=== PATIENT | male | born 1955 | race Caucasian/White ===

== ENCOUNTER 2019-08-27 13:03 | Emergency (ER) | payer OTHER ==
[2019-08-27 13:12] VITALS: BP 152/87; PULSE 74; TEMP 98.2; BMI 23.3
[2019-08-27] MEDS ORDERED: KETOROLAC TROMETHAMINE 60 MG/2 ML VIAL ONE (13:50)
[2019-08-27] MEDS ORDERED: KETOROLAC TROMETHAMINE 60 MG/2 ML VIAL IM ONE (13:51)
--- NOTE | 2019-08-27 13:59 | PDOC ---
History of Present Illness - General Chief Complaint: Back Pain Stated Complaint: UPPER/ LOWER BACK PAIN Time Seen by Provider: 08/27/19 13:38 History Source: Patient - History of Present Illness Occurred: reports: other Severity: reports: moderate Pain Location: reports: back Past History - Past Medical History Allergies/Adverse Reactions: Allergies Allergy/AdvReac Type Severity Reaction Status Date / Time No Known Allergies Allergy Verified 12/21/13 19:44 Home Medications: Ambulatory Orders Pantoprazole Sodium 20 mg PO DAILY 11/17/12 Zolpidem Tartrate [Ambien] 10 mg PO HS 11/17/12 Lipase/Protease/Amylase [Mary Sloan 24,000 Units Capsule] 1 each PO DAILY Oxycodone HCl/Acetaminophen [Percocet 10-325 mg Tablet -] 1 - 2 tab PO Q6H PRN 12/21/13 Ranitidine [Zantac] 150 mg PO BID 12/21/13 Oxycodone HCl/Acetaminophen [Percocet 5-325 mg Tablet -] 1 - 2 tab PO Q6H PRN # 20 tablet 12/22/13 Oxycodone HCl/Acetaminophen [Percocet 5-325 mg Tablet] 1 tab PO Q4H #20 tablet MDD 4 doses 08/27/19 Anemia: No Asthma: No Cancer: No Cardiac Disorders: No CVA: No COPD: No CHF: No Dementia: No Diabetes: No GI Disorders: Yes (acid reflux, pancreatitis) Disorders: No HTN: No Hypercholesterolemia: Yes Liver Disease: No Seizures: No Thyroid Disease: No Other medical history: chronic lower back pain - Immunization History Immunization Up to Date: No - Psycho Social/Smoking Cessation Hx Smoking Status: No Smoking History: Never smoked Have you smoked in the past 12 months: No Number of Cigarettes Smoked Daily: 0 Information on smoking cessation initiated: No Hx Alcohol Use: No Drug/Substance Use Hx: No Substance Use Type: Alcohol Review of Systems - Review of Systems Constitutional: No: Chills, Fever ABD/GI: No: Nausea, Vomiting, Abdominal cramping : No: Dysuria, Flank Pain, Hematuria Musculoskeletal: Yes: Back Pain Neurological: No: Numbness, Tingling, Weakness *Physical Exam - Vital Signs Last Vital Signs Temp Pulse Resp BP Pulse Ox 98.2 F 74 18 152/87 96 08/27/19 13:09 08/27/19 13:09 08/27/19 13:09 08/27/19 13:09 08/27/19 13:09 - Physical Exam General Appearance: Yes: Appropriately Dressed. No: Apparent Distress HEENT: positive: Normal Voice Neck: positive: Supple Respiratory/Chest: negative: Respiratory Distress Gastrointestinal/Abdominal: positive: Soft. negative: Tender Musculoskeletal: negative: CVA Tenderness, Vertebral Tenderness Extremity: positive: Normal Inspection Integumentary: positive: Dry, Warm Neurologic: positive: Fully Oriented, Alert, Normal Mood/Affect, Motor Strength /5 Medical Decision Making - Medical Decision Making 08/27/19 14:01 63 yo M, HTN, chronic lower back pain with DJD and herniated disc to LS spine on MRI in 2016, currently only follows up with pain management and states he has an appointment with a new pain doctor in 3 days but here for worsening pain after lifting heavy laundry several days ago. Pain located to lower back and radiates to left buttocks and leg which is not new for patient. No acute sensory changes, lower extremity weakness, saddle anesthesia, or bowel or bladder incontinence. Currently does not have any pain medication at home and usually takes Percocet. S/p spinal injection in past which did not help per pt. S/p PT in the past per patient. No back surgeries to date see exam Acute on chronic LBP Known DJD/herniated disc on MRI Has new appt w/ pain doc in 3 days Ran out of pain meds No red flags today Dc w/ pain control until can see pain specialist Discharge - Discharge Information Problems reviewed: Yes Clinical Impression/Diagnosis: Chronic low back pain Qualifiers: Back pain laterality: left Sciatica presence: with sciatica Sciatica laterality : sciatica of left side Qualified Code(s): M54.42 - Lumbago with sciatica, left side; G89.29 - Other chronic pain - Additional Discharge Information Prescriptions: Oxycodone HCl/Acetaminophen [Percocet 5-325 mg Tablet] 1 tab PO Q4H #20 tablet MDD 4 doses - Follow up/Referral Referrals: Ness Lake [Primary Care Provider] - Cachorro Shafer MD [Staff Physician] - - Patient Discharge Instructions Patient Printed Discharge Instructions: Managing Chronic Low Back Pain Additional Instructions: Take medications as directed and follow-up with your pain doctor as already scheduled in 3 days Please follow-up with Dr. Shafer of orthopedic spine - Post Discharge Activity
== END 2019-08-27 14:04 | disposition home or self-care (01) ==
LOC: JERFT 13:03
PROC: 3E0233Z Introduction of Anti-inflammatory into Muscle, Percutaneous Approach (ICD-10-PCS; principal; 2019-08-27)
DX: M54.42 Lumbago with sciatica, left side (principal); G89.29 Other chronic pain; I10 Essential (primary) hypertension
CPT/HCPCS: 96372; 99281-25

== ENCOUNTER 2019-09-07 11:05 | Emergency (ER) | payer OTHER ==
[2019-09-07 11:20] VITALS: BP 127/77; PULSE 60; TEMP 98.5; BMI 23.3
[2019-09-07] MEDS ORDERED: KETOROLAC TROMETHAMINE 30 MG/1 ML VIAL IM ONE (11:37)
[2019-09-07] MEDS ORDERED: KETOROLAC TROMETHAMINE 30 MG/1 ML VIAL ONE (11:42)
--- NOTE | 2019-09-07 11:46 | PDOC ---
History of Present Illness - General Chief Complaint: Injury Stated Complaint: FELL Time Seen by Provider: 09/07/19 11:22 History Source: Patient Exam Limitations: No Limitations - History of Present Illness Initial Comments: 09/07/19 11:41 63 yo M w/ a h/o herniated disc, chronic pain, comes in c/o R toe pain, redness and bruising after a piece of plywood fell on his foot yesterday. No other complaints today, no other injuries, no breaks in skin, no sensory deficits, no ankle injury. Pt says that he sees pain management for his chronic pain, recently changed doctors but forgot to bring his medical records so he has to reschedule his appointment. Past History - Past Medical History Allergies/Adverse Reactions: Allergies Allergy/AdvReac Type Severity Reaction Status Date / Time No Known Allergies Allergy Verified 09/07/19 11:17 Home Medications: Ambulatory Orders Pantoprazole Sodium 20 mg PO DAILY 11/17/12 Zolpidem Tartrate [Ambien] 10 mg PO HS 11/17/12 Lipase/Protease/Amylase [Mary Sloan 24,000 Units Capsule] 1 each PO DAILY Oxycodone HCl/Acetaminophen [Percocet 10-325 mg Tablet -] 1 - 2 tab PO Q6H PRN 12/21/13 Ranitidine [Zantac] 150 mg PO BID 12/21/13 Oxycodone HCl/Acetaminophen [Percocet 5-325 mg Tablet -] 1 - 2 tab PO Q6H PRN # 20 tablet 12/22/13 Oxycodone HCl/Acetaminophen [Percocet 5-325 mg Tablet] 1 tab PO Q4H #20 tablet MDD 4 doses 08/27/19 Acetaminophen W/ Codeine #3 [Tylenol # 3 -] 1 tab PO Q6H #5 tablet MDD 4 Anemia: No Asthma: No Cancer: No Cardiac Disorders: No CVA: No COPD: No CHF: No Dementia: No Diabetes: No GI Disorders: Yes (acid reflux, pancreatitis) Disorders: No HTN: No Hypercholesterolemia: Yes Liver Disease: No Seizures: No Thyroid Disease: No - Immunization History Immunization Up to Date: No - Psycho Social/Smoking Cessation Hx Smoking Status: No Smoking History: Never smoked Have you smoked in the past 12 months: No Number of Cigarettes Smoked Daily: 0 Hx Alcohol Use: No Drug/Substance Use Hx: No Substance Use Type: Alcohol Review of Systems - Review of Systems Able to Perform ROS?: Yes Constitutional: No: Chills, Fever, Malaise, Night Sweats HEENTM: No: Eye Pain, Recent change in vision, Throat Pain Respiratory: No: Cough, Shortness of Breath Cardiac (ROS): No: Chest Pain, Palpitations, Chest Tightness ABD/GI: No: Diarrhea, Nausea, Vomiting, Abdominal cramping : No: Dysuria, Hematuria Integumentary: No: Rash Neurological: No: Headache, Numbness, Dizziness Psychiatric: No: Change in Appetite Endocrine: No: Unexplained Weight Loss *Physical Exam - Vital Signs Last Vital Signs Temp Pulse Resp BP Pulse Ox 98.5 F 60 17 127/77 96 09/07/19 11:17 09/07/19 11:17 09/07/19 11:17 09/07/19 11:17 09/07/19 11:17 - Physical Exam General Appearance: Yes: Nourished. No: Apparent Distress HEENT: positive: ZAINAB, Normal ENT Inspection, Normal Voice. negative: Pale Conjunctivae, Scleral Icterus (R), Scleral Icterus (L) Neck: positive: Supple. negative: Decreased range of motion, Tender midline Respiratory/Chest: negative: Respiratory Distress, Accessory Muscle Use Cardiovascular: positive: Regular Rate Musculoskeletal: positive: Normal Inspection. negative: Decreased Range of Motion Extremity: positive: Normal Capillary Refill, Normal Inspection, Normal Range of Motion, Other (R foot with bruising, tenderness and swelling to the first MTPJ but FROM, 5/5 strength. No subungual hematoma seen. Full sensory function, good DP pulses bilaterally. R ankle with FROM, 5/5 strength.). negative: Tender , Pedal Edema Integumentary: positive: Normal Color, Dry. negative: Jaundice, Rash Neurologic: positive: Fully Oriented, Alert, Normal Mood/Affect ED Treatment Course - RADIOLOGY Radiology Studies Ordered: Category Date Time Status FOOT-RIGHT [RAD] Stat Radiology 09/07/19 11:35 Ordered Medical Decision Making - Medical Decision Making 09/07/19 11:52 63 yo M w/ foot injury R/O fracture. WIll give toradol for pain, do an xray and reassess 09/07/19 12:40 Xray reviewed. (+)non displaced fracture of the distal phalanx of the first toe. Pt placed in alanna tape. Will discharge with ortho follow up Tylenol #3, 5 pills. Pt needs to call his pain management doctor. He may take T3 with motrin Return for worsening/concerning symptoms Discharge - Discharge Information Problems reviewed: Yes Clinical Impression/Diagnosis: Toe fracture, right Qualifiers: Encounter type: initial encounter Toe: great toe Fracture type: closed Phalanx : distal Fracture alignment: nondisplaced Qualified Code(s): S92.424A - Nondisplaced fracture of distal phalanx of right great toe, initial encounter for closed fracture Condition: Stable Disposition: HOME - Additional Discharge Information Prescription Drug Monitoring Program (I-STOP) results: I-STOP reviewed and no issues identified (#[id number]) - Follow up/Referral Referrals: Ness Lake [Primary Care Provider] - Sammy Sultana DO [Staff Physician] - - Patient Discharge Instructions Patient Printed Discharge Instructions: DI for Toe Fracture Additional Instructions: Please call the orthopedic doctor as instructed and follow up with pain management for pain control. - Post Discharge Activity
== END 2019-09-07 13:01 | disposition home or self-care (01) ==
LOC: JERFT 11:05
PROC: 3E0233Z Introduction of Anti-inflammatory into Muscle, Percutaneous Approach (ICD-10-PCS; principal; 2019-09-07)
DX: S92.424A Nondisplaced fracture of distal phalanx of right great toe, initial encounter for closed fracture (principal); W22.8XXA Striking against or struck by other objects, initial encounter; Y93.89 Activity, other specified; Y92.89 Other specified places as the place of occurrence of the external cause; Y99.8 Other external cause status; K21.9 Gastro-esophageal reflux disease without esophagitis; K86.9 Disease of pancreas, unspecified; E78.00 Pure hypercholesterolemia, unspecified; G89.29 Other chronic pain
CPT/HCPCS: 73630-TC-RT-FY; 99281-25

== ENCOUNTER 2020-02-11 18:35 | Emergency (ER) | payer OTHER ==
[2020-02-11 19:29] VITALS: BP 137/75; PULSE 70; TEMP 97.3; BMI 23.6
--- NOTE | 2020-02-11 19:34 | PDOC ---
Rapid Medical Evaluation Chief Complaint: Chest Pain Medical Evaluation: Allergies Allergy/AdvReac Type Severity Reaction Status Date / Time No Known Allergies Allergy Verified 10/28/19 10:05 Vital Signs Temp Pulse Resp BP Pulse Ox 97.3 F L 70 20 137/75 99 02/11/20 19:26 02/11/20 19:26 02/11/20 19:26 02/11/20 19:26 02/11/20 19:26 02/11/20 19:29 I performed a brief in-person evaluation of this patient. Patient is a 64 year old male h/o HTN, c/o generalized upper chest pain, worse with deep breathing, (+) cough. NO know COVID exposure. Has been in the house. Since today has been taking tylenol last dose was 3:30 pm without relief. Pertinent physical exam findings: Gen: well appearing CVS: S1S2 reg rate, rhythm LUNG: Clear b /l Abd: soft, nontender I have ordered the following: cxr ekg Patient to proceed to tent for further evaluation.
--- NOTE | 2020-02-11 20:08 | PDOC ---
History of Present Illness - General Chief Complaint: Chest Pain Stated Complaint: CHEST PAINS Time Seen by Provider: 02/11/20 19:43 History Source: Patient Exam Limitations: No Limitations - History of Present Illness Initial Comments: 02/11/20 19:59 64 y/o presents to the ED with c/o of midsternal and back pressure x 3 days. Pt denies cough as initially mentioned in triage. Pt denies SOB, fever, recent covid exposure. Pt states has been home for the past 8 days with who has no complaints. No smoking, Pt with hx of HTN and dyslipidemia Is this a multiple visit Asthma Patient?: No Timing/Duration: constant Severity: mild, moderate Associated Symptoms: reports: chest pain Past History - Travel Traveled outside of the country in the last 30 days: No Close contact w/someone who was outside of country & ill: No - Past Medical History Allergies/Adverse Reactions: Allergies Allergy/AdvReac Type Severity Reaction Status Date / Time No Known Allergies Allergy Verified 10/28/19 10:05 Home Medications: Ambulatory Orders Pantoprazole Sodium 20 mg PO DAILY 11/17/12 Zolpidem Tartrate [Ambien] 10 mg PO HS 11/17/12 Lipase/Protease/Amylase [Creon Dr 24,000 Units Capsule] 1 each PO DAILY 12/21/13 Oxycodone HCl/Acetaminophen [Percocet 10-325 mg Tablet -] 1 - 2 tab PO Q6H PRN 12/21/13 Ranitidine [Zantac] 150 mg PO BID 12/21/13 Oxycodone HCl/Acetaminophen [Percocet 5-325 mg Tablet -] 1 - 2 tab PO Q6H PRN #20 tablet 12/22/13 Oxycodone HCl/Acetaminophen [Percocet 5-325 mg Tablet] 1 tab PO Q4H #20 tablet MDD 4 doses 08/27/19 Acetaminophen W/ Codeine #3 [Tylenol # 3 -] 1 tab PO Q6H #5 tablet MDD 4 09/07/19 Anemia: No Asthma: No Cancer: No Cardiac Disorders: No CVA: No COPD: No CHF: No Dementia: No Diabetes: No GI Disorders: Yes (acid reflux, pancreatitis) Disorders: No HTN: No Hypercholesterolemia: Yes Liver Disease: No Seizures: No Thyroid Disease: No - Immunization History Immunization Up to Date: No - Psycho Social/Smoking Cessation Hx Smoking Status: No Smoking History: Never smoked Have you smoked in the past 12 months: No Number of Cigarettes Smoked Daily: 0 Hx Alcohol Use: Yes Drug/Substance Use Hx: No Substance Use Type: Alcohol Patient Lives Alone: No Lives with/in: spouse/SO Review of Systems - Review of Systems Able to Perform ROS?: No Is the patient limited Yoruba proficient: No Constitutional: No: Symptoms Reported HEENTM: No: Symptoms Reported Respiratory: No: Symptoms reported Cardiac (ROS): Yes: Chest Pain ABD/GI: No: Symptoms Reported : No: Symptoms Reported Musculoskeletal: No: Symptoms Reported Integumentary: No: Symptoms Reported Neurological: No: Symptoms reported Endocrine: No: Symptoms Reported Hematologic/Lymphatic: No: Symptoms Reported *Physical Exam - Vital Signs Last Vital Signs Temp Pulse Resp BP Pulse Ox 97.3 F L 70 20 137/75 99 02/11/20 19:26 02/11/20 19:26 02/11/20 19:26 02/11/20 19:26 02/11/20 19:26 - Physical Exam General Appearance: Yes: Nourished, Appropriately Dressed. No: Apparent Distress HEENT: negative: Pale Conjunctivae, Scleral Icterus (R), Scleral Icterus (L) Respiratory/Chest: positive: Lungs Clear, Normal Breath Sounds, Accessory Muscle Use. negative: Respiratory Distress Cardiovascular: positive: Regular Rhythm, Regular Rate. negative: Murmur Gastrointestinal/Abdominal: positive: Soft. negative: Tenderness Extremity: positive: Normal Inspection Integumentary: positive: Normal Color, Warm, Moist Neurologic: positive: Motor Strength 5/5 (ambulatory) Heart Score/ECG Review - ECG Intrepretation Rhythm: Regular Rhythm (rate 70. prolonged qtc, changed from prev ekg) ED Treatment Course - LABORATORY CBC & Chemistry Diagram: 02/11/20 20:37 02/11/20 20:37 Medical Decision Making - Medical Decision Making 02/11/20 20:11 CC: CP x 3 days, hx htn and dyslipidemia Exam: vss, no reprod CP, ekg with changes concerned for ACS Plan: cardiac w/u, cxr 02/11/20 20:13 cxr with no acute process Discharge - Discharge Information Problems reviewed: Yes Clinical Impression/Diagnosis: Chest pain - Follow up/Referral Referrals: Ness Lake [Primary Care Provider] - - Patient Discharge Instructions - Post Discharge Activity
[2020-02-11 21:15] LABS: INR 0.97 (0.83-1.09); PROTHROMBIN TIME (PATIENT) 11.5 SEC (9.7-13.0)
[2020-02-11 21:17] LABS: ACTIVATED PTT 30.2 SECONDS (25.2-36.5)
[2020-02-11 22:00] LABS: BASO % 1.1 % (0-2.0); EOS % 2.1 % (0-4.5); HEMATOCRIT 40.7 % (35.4-49); HEMOGLOBIN 14.1 GM/dL (11.7-16.9); LYMPH % 20.2 % (8-40); MCH 31.3 pg (25.7-33.7); MCHC 34.7 g/dl (32.0-35.9); MEAN CELL VOLUME 90.1 fl (80-96); MEAN PLT VOLUME 9.8 fl (7.5-11.1); MONO % 7.6 % (3.8-10.2); PLATELET COUNT 159 K/MM3 (134-434); RBC 4.52 M/mm3 (4.00-5.60); RDW 13.4 % (11.9-15.9)
[2020-02-11 22:26] LABS: ALBUMIN 4.1 g/dl (3.4-5.0); ALK PHOS 64 U/L (45-117); ANION GAP 9 MMOL/L (8-16); BILIRUBIN,TOTAL 0.4 mg/dL (0.2-1); BLOOD UREA NITROGEN 18.4 mg/dL (7-18); CALCIUM 8.7 mg/dL (8.5-10.1); CHLORIDE 108 mmol/L (98-107); CO2 25 mmol/L (21-32); CREATININE 1.1 mg/dL (0.55-1.3); GLUCOSE,RANDOM 91 mg/dL (74-106); LIPASE 130 U/L (73-393); POTASSIUM 4.2 mmol/L (3.5-5.1); SGOT/AST 17 U/L (15-37); SGPT/ALT 20 U/L (13-61); SODIUM 142 mmol/L (136-145); TOT PROT 7.8 g/dl (6.4-8.2)
--- NOTE | 2020-02-11 22:37 | PDOC ---
History of Present Illness - General Chief Complaint: Chest Pain Stated Complaint: CHEST PAINS Time Seen by Provider: 02/11/20 19:43 - History of Present Illness Initial Comments: 02/11/20 22:37 64 yo M PMH HTN, HLD, hepatitis C s/p treatment by Dr. Lake at [facility], presenting with R sided chest pain. Reports that this pain has been present for the past three days, radiating down his R arm and into his R back, exacerbated by deep breaths, associated with SOB but without N/V or diaphoresis. Here today because pain went to 10/10, sharp. Has since subsided down to 8/10. Further complains of 8/10 frontal headache like a band. No one in the house is ill, and the patient has been self-quarantining. Extensive family history of cardiac disease; his father and all five brothers have had heart attacks, usually in their early 50s. Past History - Past Medical History Allergies/Adverse Reactions: Allergies Allergy/AdvReac Type Severity Reaction Status Date / Time No Known Allergies Allergy Verified 10/28/19 10:05 Home Medications: Ambulatory Orders Pantoprazole Sodium 20 mg PO DAILY 11/17/12 Zolpidem Tartrate [Ambien] 10 mg PO HS 11/17/12 Lipase/Protease/Amylase [Mary Sloan 24,000 Units Capsule] 1 each PO DAILY 12/21/13 Oxycodone HCl/Acetaminophen [Percocet 10-325 mg Tablet -] 1 - 2 tab PO Q6H PRN 12/21/13 Ranitidine [Zantac] 150 mg PO BID 12/21/13 Oxycodone HCl/Acetaminophen [Percocet 5-325 mg Tablet -] 1 - 2 tab PO Q6H PRN #20 tablet 12/22/13 Oxycodone HCl/Acetaminophen [Percocet 5-325 mg Tablet] 1 tab PO Q4H #20 tablet MDD 4 doses 08/27/19 Acetaminophen W/ Codeine #3 [Tylenol # 3 -] 1 tab PO Q6H #5 tablet MDD 4 09/07/19 Anemia: No Asthma: No Cancer: No Cardiac Disorders: No CVA: No COPD: No CHF: No Dementia: No Diabetes: No GI Disorders: Yes (acid reflux, pancreatitis) Disorders: No HTN: No Hypercholesterolemia: Yes Liver Disease: No Seizures: No Thyroid Disease: No - Immunization History Immunization Up to Date: No - Psycho Social/Smoking Cessation Hx Smoking Status: No Smoking History: Never smoked Have you smoked in the past 12 months: No Number of Cigarettes Smoked Daily: 0 Hx Alcohol Use: Yes Drug/Substance Use Hx: No Substance Use Type: Alcohol Patient Lives Alone: No Lives with/in: spouse/SO Review of Systems - Review of Systems Is the patient limited Bahraini proficient: No *Physical Exam - Vital Signs Last Vital Signs Temp Pulse Resp BP Pulse Ox 97.3 F L 70 20 137/75 99 02/11/20 19:26 02/11/20 19:26 02/11/20 19:26 02/11/20 19:26 02/11/20 19:26 Heart Score/ECG Review - History History: Slightly suspicious - Electrocardiogram EKG: Non specific repolarization disturbance - Age Age: 45-65 - Risk Factors Risk Factors Heart Score: Yes Hx Hypercholesterolemia, Yes Hx Hypertension, Yes Positive family hx of cardiac disease Based on the list above the patient has:: >/=3 risk factors or Hx atherosclerotic disease - Troponin Troponin: </= normal limit - Score Heart Score - Total: 4 ED Treatment Course - LABORATORY CBC & Chemistry Diagram: 02/11/20 20:37 02/11/20 20:37 - ADDITIONAL ORDERS Additional order review: Laboratory Results 02/11/20 02/11/20 20:37 20:35 PT with INR 11.50 INR 0.97 PTT (Actin FS) 30.2 Sodium 142 Potassium 4.2 Chloride 108 H Carbon Dioxide 25 Anion Gap 9 BUN 18.4 H Creatinine 1.1 Est GFR (CKD-EPI)AfAm 81.79 Est GFR (CKD-EPI)NonAf 70.57 Random Glucose 91 Calcium 8.7 Total Bilirubin 0.4 AST 17 ALT 20 Alkaline Phosphatase 64 Creatine Kinase 93 Troponin I < 0.02 Total Protein 7.8 Albumin 4.1 Lipase 130 02/11/20 20:37 RBC 4.52 MCV 90.1 MCHC 34.7 RDW 13.4 MPV 9.8 Neutrophils % 69.0 Lymphocytes % 20.2 D Monocytes % 7.6 Eosinophils % 2.1 D Basophils % 1.1 D Medical Decision Making - Medical Decision Making 02/11/20 22:35 R/o ACS. Low concern for PE, Wells is 0. - labs unconcerning - CXR without acute issues EKG poor baseline quality, normal sinus at 70 bpm, flattened T waves in I and V4 with T wave inversions in V5 and V6, ND 168, QRS 76, QTc 496. T wave inversions in lateral leads not present in EKG from 10/28/2019. Will admit patient to tele obs. 02/11/20 23:13 Patient states that he does not want to stay due to risk of coronavirus and would like to leave against medical advice. He has capacity to make this decision. Will sign out AMA. Discharge - Discharge Information Problems reviewed: Yes Clinical Impression/Diagnosis: Chest pain Qualifiers: Chest pain type: unspecified Qualified Code(s): R07.9 - Chest pain, unspecified Condition: Stable Disposition: AGAINST MEDICAL ADVICE - Follow up/Referral Referrals: Ness Lake [Primary Care Provider] - - Patient Discharge Instructions Patient Printed Discharge Instructions: DI for Atypical Chest Pain Additional Instructions: You were seen with chest pain. Your labs and chest X-ray did not show any concerning findings, but your EKG did have some concerning findings. However, you were unwilling to stay and signed out against medical advice. Follow up with your primary care doctor within one week. Return to the ER if you develop new or worsening symptoms. - Post Discharge Activity
[2020-02-11] MEDS ORDERED: ACETAMINOPHEN 500 MG TABLET (FP) PO ONE (22:48)
[2020-02-11] MEDS ORDERED: METOCLOPRAMIDE HCL 10 MG TABLET (FP) PO ONE (22:48)
--- NOTE | 2020-02-11 23:15 | PDOC ---
Documentation entered by Caden Segal SCRIBE, acting as scribe for Mica Contreras MD. Mica Contreras MD: This documentation has been prepared by the Luzma ruggiero Nirvannie, SCRIBE, under my direction and personally reviewed by me in its entirety. I confirm that the documentation accurately reflects all work, treatment, procedures, and medical decision making performed by me. Attending Attestation - Resident Resident Name: Rico Rowan - ED Attending Attestation I have performed the following: I have examined & evaluated the patient, The case was reviewed & discussed with the resident, I agree w/resident's findings & plan, Exceptions are as noted - HPI HPI: 02/11/20 22:58 64 yo male developed chest pain tat radiated to his right arm head ncat neck supple lungs cta b/l cvs [id number] abd nontender skin warm and dry neuro axox3,no focal neuro deficits - Physicial Exam PE: 02/11/20 23:30 wnwd 64 yo male head ncat neck supple lungs cta b/l cvs [id number] abd nontender skin warm and dry neuro axox3,no focal neuro deficits - Medical Decision Making 02/11/20 23:15 pt was going to be admitted to telemetry but he decided he felt better and refused to stay for a second troponin or be admitted for further evaluation he signed out AMA Discharge - Discharge Information Problems reviewed: Yes Clinical Impression/Diagnosis: Chest pain Condition: Stable Disposition: AGAINST MEDICAL ADVICE - Follow up/Referral Referrals: Ness Lake [Primary Care Provider] - - Patient Discharge Instructions Patient Printed Discharge Instructions: DI for Atypical Chest Pain Additional Instructions: You were seen with chest pain. Your labs and chest X-ray did not show any conc erning findings, but your EKG did have some concerning findings. However, you were unwilling to stay and signed out against medical advice. Follow up with your primary care doctor within one week. Return to the ER if you develop new or worsening symptoms. - Post Discharge Activity
--- NOTE | 2020-02-12 14:07 | EKG ---
Test Reason : Blood Pressure : / mmHG Vent. Rate : 070 BPM Atrial Rate : 070 BPM P-R Int : 168 ms QRS Dur : 076 ms QT Int : 460 ms P-R-T Axes : 056 -28 066 degrees QTc Int : 496 ms NORMAL SINUS RHYTHM NONSPECIFIC T WAVE ABNORMALITY PROLONGED QT ABNORMAL ECG WHEN COMPARED WITH ECG OF 28-OCT-2019 11:35, T WAVE VARIATION QT HAS LENGTHENED Confirmed by FERNANDO YANG, LAWRENCE ([id number]) on 02/12/2020 2:07:49 PM Referred By: SHARON Confirmed By:LAWRENCE KING MD
== END 2020-02-11 23:30 | disposition left against medical advice (07) ==
LOC: JER 18:35
DX: R07.9 Chest pain, unspecified (principal)
CPT/HCPCS: 36415; 71045-TC-FY; 80053; 82550; 83690; 84484; 85025; 85610; 85730; 93005; 93010; 99285-25

== ENCOUNTER 2021-01-21 09:30 | Inpatient (IN) | payer OTHER ==
[2021-01-21] MEDS ORDERED: SODIUM CHLORIDE 1,000 ML IV SCH (10:00)
[2021-01-21 10:30] LABS: BASO % 0.4 % (0-2.0); EOS % 0.2 % (0-4.5); HEMATOCRIT 43.6 % (35.4-49); HEMOGLOBIN 14.9 GM/dL (11.7-16.9); LYMPH % 17.6 % (8-40); MCH 30.3 pg (25.7-33.7); MCHC 34.1 g/dl (32.0-35.9); MEAN CELL VOLUME 88.8 fl (80-96); MONO % 9.3 % (3.8-10.2); NEUT % 72.5 % (42.8-82.8); PLATELET COUNT 183 K/MM3 (134-434); RBC 4.92 M/mm3 (4.00-5.60); RDW 14.4 % (11.9-15.9)
[2021-01-21] MEDS ORDERED: METOCLOPRAMIDE HCL INJECTION 10 MG/2 ML VIAL IVPUSH ONE (10:37)
[2021-01-21 10:47] LABS: ACTIVATED PTT 23.2 SECONDS (25.2-36.5); INR 0.85 (0.83-1.09); PROTHROMBIN TIME (PATIENT) 10.5 SEC (9.7-13.0)
[2021-01-21 11:00] LABS: CHLORIDE 108 mmol/L (98-107); POTASSIUM 4.3 mmol/L (3.5-5.1); SODIUM 138 mmol/L (136-145)
[2021-01-21 11:03] LABS: ALBUMIN 4.2 g/dl (3.4-5.0); ANION GAP 5 MMOL/L (8-16); BLOOD UREA NITROGEN 21.2 mg/dL (7-18); CO2 25 mmol/L (21-32)
[2021-01-21 11:04] LABS: GLUCOSE,RANDOM 93 mg/dL (74-106)
[2021-01-21 11:06] LABS: CHOLESTEROL 279 mg/dL (50-200); SGOT/AST 14 U/L (15-37); SGPT/ALT 27 U/L (13-61)
[2021-01-21 11:07] LABS: CREATININE 0.9 mg/dL (0.55-1.3); LDL CHOLESTEROL (ONLY SJRH) 185 mg/dL (5-100); TRIGLYCERIDES 102 mg/dL (0-150)
[2021-01-21 11:08] LABS: BILIRUBIN,TOTAL 0.4 mg/dL (0.2-1); TOT PROT 8.1 g/dl (6.4-8.2)
[2021-01-21 11:09] LABS: ALK PHOS 66 U/L (45-117); HDL CHOLESTEROL 80 mg/dL (40-60)
[2021-01-21 11:10] LABS: CALCIUM 9.1 mg/dL (8.5-10.1)
[2021-01-21] MEDS ORDERED: METOCLOPRAMIDE HCL INJECTION 10 MG/2 ML VIAL ONE (11:47)
[2021-01-21] MEDS ORDERED: ASPIRIN 81 MG CHEWABLE TABLETS PO ONE (12:16)
[2021-01-21] MEDS ORDERED: ATORVASTATIN CA 80 MG TABLET (FP) PO ONE (12:17)
[2021-01-21] MEDS ORDERED: ATORVASTATIN CA 80 MG TABLET (FP) ONE (12:24)
[2021-01-21] MEDS ORDERED: ASPIRIN 81 MG CHEWABLE TABLETS ONE (12:24)
[2021-01-21 14:11] LABS: URINE APPEARANCE CLEAR; URINE BILIRUBIN NEGATIVE (NEGATIVE); URINE COLOR YELLOW; URINE GLUCOSE (UA) NEGATIVE (NEGATIVE); URINE KETONE NEGATIVE (NEGATIVE); URINE LEUK ESTERASE NEGATIVE (NEGATIVE); URINE NITRITE NEGATIVE (NEGATIVE); URINE PROTEIN NEGATIVE (NEGATIVE); URINE UROBILINOGEN 0.2 mg/dL (0.2-1.0)
[2021-01-21] MEDS ORDERED: ATENOLOL 25 MG TABLET (FP) ONE (15:29)
[2021-01-21] MEDS: D5-1/2NS+20 MEQ KCL - 20 MEQ/1,000 ML INFUS.BAG IV SCH ×2 (15:32→19:00)
[2021-01-21] MEDS: ATENOLOL 25 MG TABLET (FP) PO SCH (15:33)
[2021-01-21 19:41] LABS: CHOLESTEROL 265 mg/dL (50-200); LDL CHOLESTEROL (ONLY SJRH) 173 mg/dL (5-100); TRIGLYCERIDES 152 mg/dL (0-150)
[2021-01-21 19:43] LABS: HDL CHOLESTEROL 71 mg/dL (40-60)
[2021-01-21] MEDS ORDERED: PNEUMOC 13-VAL CONJ-DIP CRM/PF 0.5 ML DISP.SYRIN IM ONE (20:00)
[2021-01-21] MEDS: ATORVASTATIN CA 80 MG TABLET (FP) PO SCH (21:06)
[2021-01-21] MEDS: QUEtiapine FUMARATE 25 MG TABLET PO SCH (21:09)
[2021-01-21] MEDS: HEPARIN NA (PORCINE) 5,000 UNITS/ML 1ML VIAL SQ SCH (21:10)
[2021-01-21 21:43] VITALS: BMI 21.8
[2021-01-22] MEDS: oxyCODONE HCL 5 MG TABLET PO PRN ×2 (01:50→19:56)
[2021-01-22] MEDS: ACETAMINOPHEN 325 MG TABLET (FP) PO PRN ×2 (01:55→19:57)
[2021-01-22 08:16] LABS: BASO % 0.5 % (0-2.0); EOS % 0.4 % (0-4.5); HEMATOCRIT 41.4 % (35.4-49); HEMOGLOBIN 14.6 GM/dL (11.7-16.9); LYMPH % 22.1 % (8-40); MCH 31.1 pg (25.7-33.7); MCHC 35.3 g/dl (32.0-35.9); MEAN CELL VOLUME 88.1 fl (80-96); MEAN PLT VOLUME 9.9 fl (7.5-11.1); MONO % 8.9 % (3.8-10.2); NEUT % 68.1 % (42.8-82.8); PLATELET COUNT 178 K/MM3 (134-434); RDW 14.1 % (11.9-15.9); WHITE BLOOD COUNT 6.5 K/mm3 (4.0-10.0)
[2021-01-22 08:48] LABS: CHLORIDE 108 mmol/L (98-107); POTASSIUM 4.3 mmol/L (3.5-5.1); SODIUM 136 mmol/L (136-145)
[2021-01-22 08:53] LABS: ALBUMIN 3.8 g/dl (3.4-5.0); ANION GAP 5 MMOL/L (8-16); BLOOD UREA NITROGEN 15.2 mg/dL (7-18); CALCIUM 8.7 mg/dL (8.5-10.1); CO2 23 mmol/L (21-32); GLUCOSE,RANDOM 103 mg/dL (74-106)
[2021-01-22 08:56] LABS: PHOSPHOROUS 3.6 mg/dL (2.5-4.9); SGOT/AST 11 U/L (15-37); SGPT/ALT 23 U/L (13-61)
[2021-01-22 08:57] LABS: BILIRUBIN,TOTAL 0.8 mg/dL (0.2-1)
[2021-01-22 08:58] LABS: TOT PROT 7.5 g/dl (6.4-8.2)
[2021-01-22 08:59] LABS: ALK PHOS 61 U/L (45-117)
[2021-01-22] MEDS: HEPARIN NA (PORCINE) 5,000 UNITS/ML 1ML VIAL SQ SCH ×2 (10:14→21:23)
[2021-01-22] MEDS: PANTOPRAZOLE 20 MG TABLET PO SCH (10:14)
[2021-01-22] MEDS: ATENOLOL 25 MG TABLET (FP) PO SCH (10:14)
[2021-01-22] MEDS: ASPIRIN COATED 81 MG TABLET.EC PO SCH (10:14)
[2021-01-22] MEDS: D5-1/2NS+20 MEQ KCL - 20 MEQ/1,000 ML INFUS.BAG IV SCH (15:10)
[2021-01-22] MEDS: ATORVASTATIN CA 80 MG TABLET (FP) PO SCH (21:23)
[2021-01-22] MEDS: QUEtiapine FUMARATE 25 MG TABLET PO SCH (21:23)
[2021-01-23] MEDS: oxyCODONE HCL 5 MG TABLET PO PRN (06:18)
[2021-01-23] MEDS: ACETAMINOPHEN 325 MG TABLET (FP) PO PRN (06:19)
[2021-01-23] MEDS: HEPARIN NA (PORCINE) 5,000 UNITS/ML 1ML VIAL SQ SCH (10:39)
[2021-01-23] MEDS: PANTOPRAZOLE 20 MG TABLET PO SCH (10:39)
[2021-01-23] MEDS: ATENOLOL 25 MG TABLET (FP) PO SCH (10:39)
[2021-01-23] MEDS: ASPIRIN COATED 81 MG TABLET.EC PO SCH (10:40)
[2021-01-23 11:13] VITALS: BP 118/75; PULSE 56; TEMP 98.2
== END 2021-01-23 12:00 | disposition home health service (06) | DRG 65 ==
LOC: JER 09:30 → JERBED 13:05 → OBSVTOIN 14:32 → J4S 16:07
PROVIDERS: ADMIT Family Medicine; ATTEND Family Medicine
DX: I63.9 Cerebral infarction, unspecified (principal); I69.351 Hemiplegia and hemiparesis following cerebral infarction affecting right dominant side; I10 Essential (primary) hypertension; E78.5 Hyperlipidemia, unspecified; B18.2 Chronic viral hepatitis C; K21.9 Gastro-esophageal reflux disease without esophagitis; R29.708 NIHSS score 8; R47.81 Slurred speech; R26.9 Unspecified abnormalities of gait and mobility
CPT/HCPCS: 36415; 70450-TC; 70496-TC; 70498-TC; 70551-TC; 71045-TC-FY; 80053; 80061; 81003; 82550; 83036; 83721; 84100; 84443; 84484; 85025; 85610; 85730; 86140; 86850; 86900; 86901; 87804; 90670; 93005; 93010; 93306-TC; 93880-TC; 97116-GP; 97161-GP; 99291; C9803; G0378; J1644; Q9967; U0003

== ENCOUNTER 2021-03-02 09:08 | Emergency (ER) | payer OTHER ==
[2021-03-02 09:18] VITALS: TEMP 97.8; BMI 23.1
[2021-03-02] MEDS ORDERED: ACETAMINOPHEN 1000 MG/100 ML VIAL (NON FORMULARY) IVPB ONE (10:51)
[2021-03-02] MEDS ORDERED: ACETAMINOPHEN INJECTION 100 ML IVPB ONE (10:55)
[2021-03-02 11:07] LABS: BASO % 1.2 % (0-2.0); EOS % 3.6 % (0-4.5); HEMATOCRIT 39.6 % (35.4-49); HEMOGLOBIN 13.9 GM/dL (11.7-16.9); LYMPH % 27.4 % (8-40); MEAN CELL VOLUME 88.7 fl (80-96); MEAN PLT VOLUME 9.8 fl (7.5-11.1); MONO % 7.3 % (3.8-10.2); NEUT % 60.5 % (42.8-82.8); PLATELET COUNT 161 K/MM3 (134-434); RBC 4.47 M/mm3 (4.00-5.60); RDW 13.6 % (11.9-15.9); WHITE BLOOD COUNT 4.9 K/mm3 (4.0-10.0)
[2021-03-02 11:17] LABS: INR 0.97 (0.83-1.09)
[2021-03-02 11:19] LABS: ACTIVATED PTT 19.7 SECONDS (25.2-36.5)
[2021-03-02 11:21] LABS: CHLORIDE 109 mmol/L (98-107); SODIUM 141 mmol/L (136-145)
[2021-03-02 11:23] LABS: CALCIUM 9.3 mg/dL (8.5-10.1)
[2021-03-02 11:24] LABS: ANION GAP 2 MMOL/L (8-16); BLOOD UREA NITROGEN 14.2 mg/dL (7-18); CO2 29 mmol/L (21-32); GLUCOSE,RANDOM 85 mg/dL (74-106)
[2021-03-02 11:27] LABS: CREATININE 0.8 mg/dL (0.55-1.3); SGOT/AST 18 U/L (15-37); SGPT/ALT 23 U/L (13-61)
[2021-03-02 11:28] LABS: BILIRUBIN,TOTAL 0.8 mg/dL (0.2-1); TOT PROT 7.4 g/dl (6.4-8.2)
[2021-03-02 11:29] LABS: ALK PHOS 62 U/L (45-117)
[2021-03-02 13:42] LABS: PH,URINE 5.5 (5.0-8.0); URINE APPEARANCE CLEAR; URINE BILIRUBIN NEGATIVE (NEGATIVE); URINE COLOR YELLOW; URINE GLUCOSE (UA) NEGATIVE (NEGATIVE); URINE KETONE NEGATIVE (NEGATIVE); URINE LEUK ESTERASE NEGATIVE (NEGATIVE); URINE NITRITE NEGATIVE (NEGATIVE); URINE PROTEIN NEGATIVE (NEGATIVE); URINE UROBILINOGEN 0.2 mg/dL (0.2-1.0)
[2021-03-02] MEDS ORDERED: GABAPENTIN 300 MG CAPSULE PO ONE (14:36)
[2021-03-02 15:02] VITALS: BP 138/69; PULSE 64
[2021-03-02] MEDS ORDERED: GABAPENTIN 100 MG CAPSULE ONE (15:05)
== END 2021-03-02 15:12 | disposition home or self-care (01) ==
LOC: JER 09:08
PROC: 3E0333Z Introduction of Anti-inflammatory into Peripheral Vein, Percutaneous Approach (ICD-10-PCS; principal; 2021-03-02)
DX: R20.2 Paresthesia of skin (principal); G89.0 Central pain syndrome
CPT/HCPCS: 36415; 70450-TC; 70551-TC; 71046-TC-FY; 80053; 81003; 82550; 84484; 85025; 85610; 85730; 87086; 93005; 93010; 99285-25; C9803; J0131; U0003; U0005

== ENCOUNTER 2021-04-23 12:46 | Emergency (ER) | payer OTHER ==
[2021-04-23 12:58] VITALS: TEMP 98.3; BMI 21.9
[2021-04-23 15:24] VITALS: BP 140/72; PULSE 72
== END 2021-04-23 15:25 | disposition home or self-care (01) ==
LOC: JER 12:46
DX: M54.5 Low back pain (principal)
CPT/HCPCS: 99281-25

== ENCOUNTER 2021-06-10 14:53 | Emergency (ER) | payer OTHER ==
[2021-06-10 15:00] VITALS: TEMP 98; BMI 23.0
[2021-06-10] MEDS ORDERED: ACETAMINOPHEN 325 MG TABLET (FP) PO ONE (17:14)
[2021-06-10] MEDS ORDERED: KETAMINE HCL 500 MG/10 ML VIAL IM ONE ×2 (17:20→17:24)
[2021-06-10] MEDS ORDERED: ACETAMINOPHEN 325 MG TABLET (FP) ONE (17:29)
[2021-06-10] MEDS ORDERED: KETAMINE HCL 200 MG/20 ML VIAL ONE (17:35)
[2021-06-10 19:13] VITALS: BP 150/62; PULSE 78
== END 2021-06-10 19:00 | disposition home or self-care (01) ==
LOC: JER 14:53
DX: G89.29 Other chronic pain (principal)
CPT/HCPCS: 99283-25

== ENCOUNTER 2021-07-24 22:56 | Inpatient (IN) | payer OTHER ==
[2021-07-24 23:00] VITALS: BMI 25.0
[2021-07-24 23:22] LABS: BASO % 1.1 % (0-2.0); EOS % 2.7 % (0-4.5); HEMATOCRIT 39.3 % (35.4-49); HEMOGLOBIN 13.6 GM/dL (11.7-16.9); LYMPH % 22.4 % (8-40); MCH 30.6 pg (25.7-33.7); MCHC 34.7 g/dl (32.0-35.9); MEAN CELL VOLUME 88.3 fl (80-96); MEAN PLT VOLUME 9.3 fl (7.5-11.1); MONO % 9.1 % (3.8-10.2); NEUT % 64.7 % (42.8-82.8); PLATELET COUNT 166 10^3/uL (134-434); RBC 4.45 M/mm3 (4.00-5.60); RDW 13.5 % (11.9-15.9); VENOUS BASE EXCESS -2.2 mmol/L (-2-2); VENOUS O2 SATURATION 93.9 % (70-80); VENOUS PCO2 34.9 mmHg (38-52); VENOUS PH 7.412 (7.310-7.410); WHITE BLOOD COUNT 6.8 K/mm3 (4.0-10.0)
[2021-07-24] MEDS ORDERED: LORazepam 2 MG/ML SDV VIAL IVPUSH ONE (23:29)
[2021-07-24] MEDS ORDERED: LORazepam 2 MG/ML SDV VIAL ONE (23:29)
[2021-07-24 23:30] LABS: INR 0.91 (0.83-1.09)
[2021-07-24 23:33] LABS: ACTIVATED PTT 22.6 SECONDS (25.2-36.5)
[2021-07-24 23:45] LABS: CHLORIDE 111 mmol/L (98-107); SODIUM 142 mmol/L (136-145)
[2021-07-24 23:47] LABS: CALCIUM 8.7 mg/dL (8.5-10.1)
[2021-07-24 23:48] LABS: ALBUMIN 3.7 g/dl (3.4-5.0); ANION GAP 5 MMOL/L (8-16); BLOOD UREA NITROGEN 20.3 mg/dL (7-18); CO2 26 mmol/L (21-32); GLUCOSE,RANDOM 126 mg/dL (74-106); MAGNESIUM 2.5 mg/dL (1.8-2.4)
[2021-07-24 23:51] LABS: SGOT/AST 16 U/L (15-37); SGPT/ALT 20 U/L (13-61)
[2021-07-24 23:52] LABS: BILIRUBIN,TOTAL 0.3 mg/dL (0.2-1); TOT PROT 7.3 g/dl (6.4-8.2)
[2021-07-24 23:53] LABS: ALK PHOS 58 U/L (45-117)
[2021-07-24 23:56] LABS: N-TERMINAL BNP 53.5 pg/ml (5-125)
[2021-07-25 00:08] LABS: COCAINE, UR NEGATIVE (NEGATIVE); METHADONE, UR NEGATIVE (NEGATIVE); URINE BARBITURATES NEGATIVE (NEGATIVE)
[2021-07-25 00:09] LABS: OPIATES, URI NEGATIVE (NEGATIVE); PHENCYCLIDINE,URINE NEGATIVE (NEGATIVE)
[2021-07-25 00:13] LABS: URINE AMPHETAMINES NEGATIVE (NEGATIVE); URINE BENZODIAZEPINES POSITIVE (NEGATIVE)
[2021-07-25] MEDS ORDERED: SODIUM CHLORIDE 1,000 ML IV STA (00:20)
[2021-07-25] MEDS ORDERED: LORazepam 2 MG/ML SDV VIAL ONE (00:26)
[2021-07-25] MEDS ORDERED: LORazepam 2 MG/ML SDV VIAL IVPUSH ONE (00:27)
[2021-07-25 00:31] LABS: PH,URINE 6.5 (5.0-8.0); URINE APPEARANCE CLEAR; URINE BILIRUBIN NEGATIVE (NEGATIVE); URINE COLOR YELLOW; URINE GLUCOSE (UA) NEGATIVE (NEGATIVE); URINE KETONE NEGATIVE (NEGATIVE); URINE LEUK ESTERASE NEGATIVE (NEGATIVE); URINE NITRITE NEGATIVE (NEGATIVE); URINE PROTEIN NEGATIVE (NEGATIVE); URINE UROBILINOGEN 0.2 mg/dL (0.2-1.0)
[2021-07-25] MEDS ORDERED: DEXTROSE 5%-NORMAL SALINE 1,000 ML IV SCH (02:15)
[2021-07-25] MEDS ORDERED: ALBUTEROL SO4 HFA INHALER IH PRN (02:52)
[2021-07-25] MEDS ORDERED: CYCLOBENZAPRINE HCL 5 MG TABLET PO PRN (03:00)
[2021-07-25] MEDS ORDERED: TAMSULOSIN HCL 0.4 MG CAP PO ONE (03:00)
[2021-07-25] MEDS ORDERED: LORazepam 2 MG/ML SDV VIAL IVPB PRN (05:43)
[2021-07-25] MEDS ORDERED: ACETAMINOPHEN 1000 MG/100 ML VIAL (NON FORMULARY) IVPB PRN (06:04)
[2021-07-25] MEDS ORDERED: ENOXAPARIN NA (PORCINE) 40 MG/0.4 ML DISP.SYRIN SQ ONE (07:47)
[2021-07-25] MEDS ORDERED: FLUTICASONE/SALMETEROL 100 MCG/50 MCG DISKUS IH SCH (10:00)
[2021-07-25] MEDS: ASPIRIN COATED 81 MG TABLET.EC PO SCH (10:29)
[2021-07-25] MEDS: OXYBUTYNIN CHLORIDE 5 MG TABLET PO SCH ×2 (10:29→22:37)
[2021-07-25] MEDS: ATENOLOL 25 MG TABLET (FP) PO SCH (10:30)
[2021-07-25] MEDS: PANTOPRAZOLE 40 MG TABLET PO SCH (10:30)
[2021-07-25] MEDS: ENOXAPARIN NA (PORCINE) 40 MG/0.4 ML DISP.SYRIN SQ SCH (10:30)
[2021-07-25] MEDS ORDERED: METOPROLOL TARTRATE 5 MG/5 ML VIAL IVPUSH PRN (13:45)
[2021-07-25] MEDS ORDERED: PT OWN MED DRAWER 7, Y5N ONE (21:42)
[2021-07-25] MEDS: ATORVASTATIN CA 40 MG TABLET (FP) PO SCH (22:38)
[2021-07-26 08:56] LABS: EOS % 2.5 % (0-4.5); HEMATOCRIT 42.2 % (35.4-49); HEMOGLOBIN 14.7 GM/dL (11.7-16.9); MCH 30.8 pg (25.7-33.7); MCHC 34.8 g/dl (32.0-35.9); MEAN CELL VOLUME 88.4 fl (80-96); MEAN PLT VOLUME 9.7 fl (7.5-11.1); MONO % 7.4 % (3.8-10.2); NEUT % 66.1 % (42.8-82.8); PLATELET COUNT 168 10^3/uL (134-434); RBC 4.77 M/mm3 (4.00-5.60); RDW 13.4 % (11.9-15.9); WHITE BLOOD COUNT 7.5 K/mm3 (4.0-10.0)
[2021-07-26] MEDS ORDERED: PT OWN MED DRAWER 7, Y5N ONE ×2 (09:22→21:35)
[2021-07-26 09:44] LABS: ALBUMIN 3.7 g/dl (3.4-5.0); BLOOD UREA NITROGEN 12.4 mg/dL (7-18); CALCIUM 8.5 mg/dL (8.5-10.1)
[2021-07-26 09:47] LABS: BILIRUBIN,TOTAL 1.2 mg/dL (0.2-1); TOT PROT 7.2 g/dl (6.4-8.2)
[2021-07-26 09:48] LABS: CREATININE 0.9 mg/dL (0.55-1.3)
[2021-07-26] MEDS: ENOXAPARIN NA (PORCINE) 40 MG/0.4 ML DISP.SYRIN SQ SCH (09:55)
[2021-07-26] MEDS: OXYBUTYNIN CHLORIDE 5 MG TABLET PO SCH ×2 (09:55→21:48)
[2021-07-26] MEDS: PANTOPRAZOLE 40 MG TABLET PO SCH (09:55)
[2021-07-26] MEDS: ASPIRIN COATED 81 MG TABLET.EC PO SCH (09:55)
[2021-07-26] MEDS: ATENOLOL 25 MG TABLET (FP) PO SCH (09:55)
[2021-07-26] MEDS ORDERED: MELATONIN 5 MG TABLETS PO ONE (20:29)
[2021-07-26] MEDS: ATORVASTATIN CA 40 MG TABLET (FP) PO SCH (21:48)
[2021-07-27] MEDS ORDERED: MELATONIN 5 MG TABLETS PO ONE ×2 (03:18→20:15)
[2021-07-27 08:56] LABS: BASO % 0.9 % (0-2.0); EOS % 3.8 % (0-4.5); HEMATOCRIT 41.3 % (35.4-49); HEMOGLOBIN 14.5 GM/dL (11.7-16.9); LYMPH % 25.1 % (8-40); MCH 31.3 pg (25.7-33.7); MCHC 35.1 g/dl (32.0-35.9); MEAN CELL VOLUME 89.2 fl (80-96); MONO % 8.1 % (3.8-10.2); NEUT % 62.1 % (42.8-82.8); PLATELET COUNT 174 10^3/uL (134-434); RBC 4.63 M/mm3 (4.00-5.60); RDW 13.6 % (11.9-15.9); WHITE BLOOD COUNT 7.3 K/mm3 (4.0-10.0)
[2021-07-27] MEDS ORDERED: PT OWN MED DRAWER 7, Y5N ONE ×2 (09:11→22:23)
[2021-07-27 09:25] LABS: CALCIUM 8.8 mg/dL (8.5-10.1)
[2021-07-27 09:26] LABS: ALBUMIN 3.6 g/dl (3.4-5.0); BLOOD UREA NITROGEN 18.1 mg/dL (7-18)
[2021-07-27 09:31] LABS: BILIRUBIN,TOTAL 0.7 mg/dL (0.2-1); TOT PROT 7.1 g/dl (6.4-8.2)
[2021-07-27] MEDS: ASPIRIN COATED 81 MG TABLET.EC PO SCH (09:43)
[2021-07-27] MEDS: ATENOLOL 25 MG TABLET (FP) PO SCH (09:43)
[2021-07-27] MEDS: PANTOPRAZOLE 40 MG TABLET PO SCH (09:43)
[2021-07-27] MEDS: OXYBUTYNIN CHLORIDE 5 MG TABLET PO SCH ×2 (09:43→22:47)
[2021-07-27] MEDS: ENOXAPARIN NA (PORCINE) 40 MG/0.4 ML DISP.SYRIN SQ SCH (09:43)
[2021-07-27] MEDS: oxyCODONE HCL 5 MG TABLET PO PRN ×2 (15:29→22:46)
[2021-07-27] MEDS: ATORVASTATIN CA 40 MG TABLET (FP) PO SCH (22:47)
[2021-07-28 05:45] VITALS: BP 122/74; PULSE 47; TEMP 97.8
[2021-07-28] MEDS ORDERED: PT OWN MED DRAWER 7, Y5N ONE (09:03)
[2021-07-28] MEDS: OXYBUTYNIN CHLORIDE 5 MG TABLET PO SCH (09:04)
[2021-07-28] MEDS: ASPIRIN COATED 81 MG TABLET.EC PO SCH (09:07)
[2021-07-28] MEDS: PANTOPRAZOLE 40 MG TABLET PO SCH (09:08)
[2021-07-28] MEDS: ENOXAPARIN NA (PORCINE) 40 MG/0.4 ML DISP.SYRIN SQ SCH (09:08)
[2021-07-28] MEDS ORDERED: ATENOLOL 25 MG TABLET (FP) PO SCH (10:00)
== END 2021-07-28 11:41 | disposition home or self-care (01) | DRG 917 ==
LOC: JER 22:56 → JERBED 07-25 02:01 → J4W 07-25 16:42
PROVIDERS: ADMIT Internal Medicine; ATTEND Family Medicine
DX: T40.601A Poisoning by unspecified narcotics, accidental (unintentional), initial encounter (principal); G92 Toxic encephalopathy; I69.351 Hemiplegia and hemiparesis following cerebral infarction affecting right dominant side; I10 Essential (primary) hypertension; E78.5 Hyperlipidemia, unspecified; F32.9 Major depressive disorder, single episode, unspecified; K21.9 Gastro-esophageal reflux disease without esophagitis; F10.10 Alcohol abuse, uncomplicated; M54.9 Dorsalgia, unspecified; C61 Malignant neoplasm of prostate; Y92.009 Unspecified place in unspecified non-institutional (private) residence as the place of occurrence of the external cause
CPT/HCPCS: 36415; 70450-TC; 70551-TC; 71045-TC-FY; 72125-TC; 80048; 80053; 80171; 80307; 81003; 82140; 82550; 82803; 82962; 83605; 83735; 83880; 84443; 84484; 85025; 85610; 85730; 86850; 86900; 86901; 87040; 93005; 93010; 99285-25; C9803; U0003; U0005

== ENCOUNTER 2021-09-03 07:36 | Emergency (ER) | payer OTHER ==
[2021-09-03 08:06] VITALS: BP 161/66; PULSE 63; TEMP 98.4; BMI 25.1
[2021-09-03] MEDS ORDERED: METHOCARBAMOL 500 MG TABLET PO ONE (08:20)
[2021-09-03] MEDS ORDERED: ACETAMINOPHEN 1000 MG/100 ML VIAL IVPB ONE (08:20)
[2021-09-03 08:22] LABS: URINE APPEARANCE CLEAR; URINE BILIRUBIN NEGATIVE (NEGATIVE); URINE COLOR YELLOW; URINE GLUCOSE (UA) NEGATIVE (NEGATIVE); URINE KETONE NEGATIVE (NEGATIVE); URINE LEUK ESTERASE NEGATIVE (NEGATIVE); URINE NITRITE NEGATIVE (NEGATIVE); URINE PROTEIN NEGATIVE (NEGATIVE); URINE UROBILINOGEN 0.2 mg/dL (0.2-1.0)
[2021-09-03] MEDS ORDERED: METHOCARBAMOL 500 MG TABLET ONE (08:30)
[2021-09-03] MEDS ORDERED: ACETAMINOPHEN INJECTION 100 ML IVPB ONE (08:31)
== END 2021-09-03 10:40 | disposition home or self-care (01) ==
LOC: JER 07:36
PROC: 3E033GC Introduction of Other Therapeutic Substance into Peripheral Vein, Percutaneous Approach (ICD-10-PCS; principal; 2021-09-03)
DX: M79.10 Myalgia, unspecified site (principal)
CPT/HCPCS: 81003; 96374; 99284-25; J0131

== ENCOUNTER 2021-12-20 13:38 | Emergency (ER) | payer OTHER ==
[2021-12-20 13:50] VITALS: TEMP 97.4; BMI 21.7
[2021-12-20] MEDS ORDERED: morphine CARPU-JECT 4 MG/1 ML DISP.SYRIN IVPUSH ONE (15:02)
[2021-12-20] MEDS ORDERED: ACETAMINOPHEN 1000 MG/100 ML BAG IVPB ONE (15:02)
[2021-12-20] MEDS ORDERED: morphine SULFATE 4 MG/ML VIAL ONE (15:10)
[2021-12-20] MEDS ORDERED: ACETAMINOPHEN INJECTION 100 ML IVPB ONE (15:11)
[2021-12-20 15:43] LABS: BASO % 0.5 % (0-2.0); EOS % 2.9 % (0-4.5); HEMATOCRIT 39.7 % (35.4-49); HEMOGLOBIN 13.6 GM/dL (11.7-16.9); LYMPH % 18.5 % (8-40); MCH 30.1 pg (25.7-33.7); MCHC 34.3 g/dl (32.0-35.9); MEAN CELL VOLUME 87.8 fl (80-96); MEAN PLT VOLUME 9.7 fl (7.5-11.1); MONO % 6.1 % (3.8-10.2); PLATELET COUNT 153 10^3/uL (134-434); RBC 4.52 M/mm3 (4.00-5.60); RDW 13.3 % (11.9-15.9); WHITE BLOOD COUNT 5.7 K/mm3 (4.0-10.0)
[2021-12-20 15:57] LABS: CALCIUM 9.4 mg/dL (8.5-10.1)
[2021-12-20 15:58] LABS: ALBUMIN 4.4 g/dl (3.4-5.0)
[2021-12-20 16:00] LABS: CREATININE 1.1 mg/dL (0.55-1.3)
[2021-12-20 16:02] LABS: BILIRUBIN,TOTAL 0.6 mg/dL (0.2-1); INR 1.05 (0.83-1.09); PROTHROMBIN TIME (PATIENT) 12.1 SEC (9.7-13.0); TOT PROT 7.8 g/dl (6.4-8.2)
[2021-12-20 16:05] LABS: ACTIVATED PTT 26.7 SECONDS (25.2-36.5)
[2021-12-20 17:49] VITALS: BP 137/83; PULSE 60
== END 2021-12-20 18:19 | disposition home or self-care (01) ==
LOC: JER 13:38
PROC: 3E0333Z Introduction of Anti-inflammatory into Peripheral Vein, Percutaneous Approach (ICD-10-PCS; principal; 2021-12-20)
PROC: 3E033NZ Introduction of Analgesics, Hypnotics, Sedatives into Peripheral Vein, Percutaneous Approach (ICD-10-PCS; 2021-12-20)
DX: R07.89 Other chest pain (principal)
CPT/HCPCS: 36415; 71045-TC-FY; 80053; 82550; 84484; 85025; 85610; 85730; 93005; 93010; 96374; 96375; 99285-25; J0131

== ENCOUNTER 2022-01-05 11:00 | Emergency (ER) | payer OTHER ==
[2022-01-05 11:55] VITALS: TEMP 98.2; BMI 21.9
[2022-01-05] MEDS ORDERED: SODIUM CHLORIDE 0.9% 500 ML INFUS.BAG IV ONE (12:47)
[2022-01-05] MEDS ORDERED: ACETAMINOPHEN 1000 MG/100 ML BAG IVPB ONE (12:48)
[2022-01-05] MEDS ORDERED: morphine CARPU-JECT 2 MG/1 ML DISP.SYRIN IVPUSH ONE (12:48)
[2022-01-05] MEDS ORDERED: ACETAMINOPHEN INJECTION 100 ML IVPB ONE (12:53)
[2022-01-05 13:33] LABS: BASO % 0.3 % (0-2.0); HEMATOCRIT 45.2 % (35.4-49); HEMOGLOBIN 15.7 GM/dL (11.7-16.9); LYMPH % 16.9 % (8-40); MCH 29.9 pg (25.7-33.7); MCHC 34.6 g/dl (32.0-35.9); MEAN CELL VOLUME 86.4 fl (80-96); MEAN PLT VOLUME 8.9 fl (7.5-11.1); MONO % 10.3 % (3.8-10.2); NEUT % 72.5 % (42.8-82.8); PLATELET COUNT 241 10^3/uL (134-434); RBC 5.23 M/mm3 (4.00-5.60); RDW 12.8 % (11.9-15.9); WHITE BLOOD COUNT 7.9 K/mm3 (4.0-10.0)
[2022-01-05 13:59] LABS: CALCIUM 10.3 mg/dL (8.5-10.1)
[2022-01-05 14:00] LABS: ALBUMIN 4.7 g/dl (3.4-5.0)
[2022-01-05 14:02] LABS: CREATININE 1.1 mg/dL (0.55-1.3)
[2022-01-05 14:04] LABS: BILIRUBIN,TOTAL 0.7 mg/dL (0.2-1); TOT PROT 8.6 g/dl (6.4-8.2)
[2022-01-05] MEDS ORDERED: diazePAM 5 MG TABLET PO ONE (14:46)
[2022-01-05] MEDS ORDERED: diazePAM 5 MG TABLET ONE (14:47)
[2022-01-05] MEDS ORDERED: LIDOCAINE 5% TOPICAL PATCH TP ONE (16:41)
[2022-01-05] MEDS ORDERED: LIDOCAINE 5% TOPICAL PATCH ONE (16:48)
[2022-01-05 16:58] VITALS: BP 147/87; PULSE 87
[2022-01-05] MEDS ORDERED: LIDOCAINE PATCH REMOVAL MC SCH (22:00)
== END 2022-01-05 17:00 | disposition home or self-care (01) ==
LOC: JER 11:00
PROC: 3E0333Z Introduction of Anti-inflammatory into Peripheral Vein, Percutaneous Approach (ICD-10-PCS; principal; 2022-01-05)
PROC: 3E033NZ Introduction of Analgesics, Hypnotics, Sedatives into Peripheral Vein, Percutaneous Approach (ICD-10-PCS; 2022-01-05)
DX: R25.2 Cramp and spasm (principal)
CPT/HCPCS: 36415; 80053; 82550; 85025; 96374; 96375; 99284-25

== ENCOUNTER 2022-07-28 16:31 | Observation (INO) | payer OTHER ==
[2022-07-28 16:52] VITALS: BMI 22.5
[2022-07-28] MEDS ORDERED: SODIUM CHLORIDE 1,000 ML IV STA (17:42)
[2022-07-28] MEDS ORDERED: ACETAMINOPHEN 1000 MG/100 ML BAG IVPB ONE (17:42)
[2022-07-28] MEDS ORDERED: morphine CARPU-JECT 2 MG/1 ML DISP.SYRIN IVPUSH ONE ×2 (17:42→21:59)
[2022-07-28] MEDS ORDERED: ACETAMINOPHEN INJECTION 100 ML IVPB ONE (17:59)
[2022-07-28 18:44] LABS: BASO % 1.4 % (0-2.0); EOS % 7.3 % (0-4.5); HEMATOCRIT 40.7 % (35.4-49); HEMOGLOBIN 13.8 GM/dL (11.7-16.9); LYMPH % 24.7 % (8-40); MCH 30.1 pg (25.7-33.7); MCHC 33.9 g/dl (32.0-35.9); MEAN CELL VOLUME 88.8 fl (80-96); MEAN PLT VOLUME 9.7 fl (7.5-11.1); MONO % 6.8 % (3.8-10.2); NEUT % 59.8 % (42.8-82.8); PLATELET COUNT 194 10^3/uL (134-434); RBC 4.59 M/mm3 (4.00-5.60); RDW 13.9 % (11.9-15.9)
[2022-07-28 18:48] LABS: CHLORIDE 108 mmol/L (98-107); SODIUM 141 mmol/L (136-145)
[2022-07-28 18:49] LABS: CALCIUM 8.8 mg/dL (8.5-10.1)
[2022-07-28 18:50] LABS: ANION GAP 6 MMOL/L (8-16); BLOOD UREA NITROGEN 16.1 mg/dL (7-18); CO2 28 mmol/L (21-32); GLUCOSE,RANDOM 89 mg/dL (74-106)
[2022-07-28 18:53] LABS: SGOT/AST 32 U/L (15-37); SGPT/ALT 48 U/L (13-61)
[2022-07-28 18:55] LABS: BILIRUBIN,TOTAL 0.6 mg/dL (0.2-1); TOT PROT 7.9 g/dl (6.4-8.2)
[2022-07-28 18:56] LABS: ALK PHOS 81 U/L (45-117)
[2022-07-28] MEDS ORDERED: KETOROLAC TROMETHAMINE 30 MG/1 ML VIAL IVPUSH ONE (21:14)
[2022-07-29] MEDS ORDERED: ACETAMINOPHEN 1000 MG/100 ML BAG IVPB ONE (02:49)
[2022-07-29] MEDS ORDERED: hydrALAZINE HCL 20 MG/ML VIAL IVPUSH ONE (02:50)
[2022-07-29] MEDS ORDERED: hydrALAZINE HCL 20 MG/ML VIAL ONE (02:58)
[2022-07-29] MEDS ORDERED: ACETAMINOPHEN INJECTION 100 ML IVPB ONE (03:04)
[2022-07-29] MEDS ORDERED: ACETAMINOPHEN 1000 MG/100 ML BAG IVPB PRN ×2 (04:16→05:54)
[2022-07-29 06:07] LABS: URINE APPEARANCE CLEAR; URINE BILIRUBIN NEGATIVE (NEGATIVE); URINE COLOR YELLOW; URINE GLUCOSE (UA) NEGATIVE (NEGATIVE); URINE KETONE NEGATIVE (NEGATIVE); URINE LEUK ESTERASE NEGATIVE (NEGATIVE); URINE NITRITE NEGATIVE (NEGATIVE); URINE PROTEIN NEGATIVE (NEGATIVE); URINE UROBILINOGEN 0.2 mg/dL (0.2-1.0)
[2022-07-29] MEDS ORDERED: SODIUM CHLORIDE 1,000 ML IV SCH (06:15)
[2022-07-29 06:48] VITALS: TEMP 97.9
[2022-07-29 07:11] LABS: BASO % 1.8 % (0-2.0); EOS % 11.3 % (0-4.5); HEMATOCRIT 40.4 % (35.4-49); HEMOGLOBIN 13.6 GM/dL (11.7-16.9); LYMPH % 24.9 % (8-40); MCH 29.6 pg (25.7-33.7); MCHC 33.5 g/dl (32.0-35.9); MEAN CELL VOLUME 88.3 fl (80-96); MEAN PLT VOLUME 10.2 fl (7.5-11.1); MONO % 7.4 % (3.8-10.2); NEUT % 54.6 % (42.8-82.8); PLATELET COUNT 186 10^3/uL (134-434); RBC 4.58 M/mm3 (4.00-5.60); RDW 13.8 % (11.9-15.9); WHITE BLOOD COUNT 5.6 K/mm3 (4.0-10.0)
[2022-07-29 07:49] LABS: ALBUMIN 3.7 g/dl (3.4-5.0); BILIRUBIN,TOTAL 0.6 mg/dL (0.2-1); BLOOD UREA NITROGEN 14.1 mg/dL (7-18); CALCIUM 8.4 mg/dL (8.5-10.1); MAGNESIUM 2.4 mg/dL (1.8-2.4); TOT PROT 7.3 g/dl (6.4-8.2)
[2022-07-29] MEDS ORDERED: ENOXAPARIN NA (PORCINE) 40 MG/0.4 ML DISP.SYRIN SQ ONE (08:04)
[2022-07-29] MEDS ORDERED: ENOXAPARIN NA (PORCINE) 40 MG/0.4 ML DISP.SYRIN SQ SCH (10:00)
[2022-07-29 10:17] VITALS: RESP 18
[2022-07-29 14:12] VITALS: BP 140/95; PULSE 77
[2022-07-29] MEDS ORDERED: ATORVASTATIN CA 40 MG TABLET (FP) PO SCH (22:00)
== END 2022-07-29 16:20 | disposition home or self-care (01) ==
LOC: JER 16:31 → JERBED 21:59
PROVIDERS: ADMIT Internal Medicine; ATTEND Internal Medicine
PROC: 3E033NZ Introduction of Analgesics, Hypnotics, Sedatives into Peripheral Vein, Percutaneous Approach (ICD-10-PCS; principal; 2022-07-28)
PROC: 3E023GC Introduction of Other Therapeutic Substance into Muscle, Percutaneous Approach (ICD-10-PCS; 2022-07-28)
PROC: 3E033GC Introduction of Other Therapeutic Substance into Peripheral Vein, Percutaneous Approach (ICD-10-PCS; 2022-07-28)
PROC: 3E0337Z Introduction of Electrolytic and Water Balance Substance into Peripheral Vein, Percutaneous Approach (ICD-10-PCS; 2022-07-28)
DX: I49.1 Atrial premature depolarization (principal); R07.9 Chest pain, unspecified; E78.5 Hyperlipidemia, unspecified; Z85.46 Personal history of malignant neoplasm of prostate; M54.9 Dorsalgia, unspecified
CPT/HCPCS: 36415; 70450-TC; 71045-TC-FY; 80053; 81003; 82550; 83735; 84100; 84484; 85025; 87086; 93005; 93010; 96361; 96372; 96374; 96375; 96376; 99285-25; C9803-CS; G0378; U0003; U0005

== ENCOUNTER 2023-04-19 13:25 | Observation (INO) | payer OTHER ==
[2023-04-19] MEDS ORDERED: ACETAMINOPHEN 1000 MG/100 ML BAG IVPB ONE (14:28)
[2023-04-19] MEDS ORDERED: ACETAMINOPHEN INJECTION 100 ML IVPB ONE (14:32)
[2023-04-19 15:00] LABS: BASO % 2.3 % (0-2.0); EOS % 5.4 % (0-4.5); HEMATOCRIT 37.9 % (35.4-49); HEMOGLOBIN 12.9 GM/dL (11.7-16.9); LYMPH % 20.1 % (8-40); MCH 30.3 pg (25.7-33.7); MCHC 34.1 g/dl (32.0-35.9); MEAN PLT VOLUME 9.4 fl (7.5-11.1); MONO % 7.1 % (3.8-10.2); NEUT % 65.1 % (42.8-82.8); PLATELET COUNT 156 10^3/uL (134-434); RBC 4.26 M/mm3 (4.00-5.60); RDW 13.8 % (11.9-15.9); WHITE BLOOD COUNT 5.4 K/mm3 (4.0-10.0)
[2023-04-19 15:17] LABS: POTASSIUM 4.4 mmol/L (3.5-5.1)
[2023-04-19 15:19] LABS: CALCIUM 9.1 mg/dL (8.5-10.1)
[2023-04-19 15:20] LABS: ALBUMIN 3.9 g/dl (3.4-5.0); BLOOD UREA NITROGEN 25.7 mg/dL (7-18)
[2023-04-19 15:23] LABS: CREATININE 1.1 mg/dL (0.55-1.3)
[2023-04-19 15:24] LABS: BILIRUBIN,TOTAL 0.4 mg/dL (0.2-1)
[2023-04-19 15:25] LABS: TOT PROT 7.2 g/dl (6.4-8.2)
[2023-04-19] MEDS ORDERED: ZOLPIDEM TARTRATE 5 MG TABLET PO ONE (21:07)
[2023-04-19] MEDS ORDERED: ALBUTEROL SO4 HFA INHALER IH PRN (23:52)
[2023-04-20] MEDS ORDERED: ZOLPIDEM TARTRATE 5 MG TABLET ONE (00:01)
[2023-04-20 01:24] VITALS: BMI 23.9
[2023-04-20 06:47] LABS: BASO % 1.7 % (0-2.0); EOS % 6.9 % (0-4.5); HEMATOCRIT 37.2 % (35.4-49); HEMOGLOBIN 12.6 GM/dL (11.7-16.9); MCH 30.5 pg (25.7-33.7); MCHC 33.9 g/dl (32.0-35.9); MEAN CELL VOLUME 89.9 fl (80-96); MONO % 9.8 % (3.8-10.2); NEUT % 55.6 % (42.8-82.8); PLATELET COUNT 150 10^3/uL (134-434); RBC 4.14 M/mm3 (4.00-5.60); RDW 13.3 % (11.9-15.9); WHITE BLOOD COUNT 4.8 K/mm3 (4.0-10.0)
[2023-04-20 07:05] LABS: POTASSIUM 4.3 mmol/L (3.5-5.1)
[2023-04-20 07:10] LABS: ALBUMIN 3.5 g/dl (3.4-5.0); BLOOD UREA NITROGEN 21.5 mg/dL (7-18); CALCIUM 8.6 mg/dL (8.5-10.1); MAGNESIUM 2.3 mg/dL (1.8-2.4)
[2023-04-20 07:13] LABS: CREATININE 0.8 mg/dL (0.55-1.3)
[2023-04-20 07:15] LABS: BILIRUBIN,TOTAL 0.5 mg/dL (0.2-1); TOT PROT 6.7 g/dl (6.4-8.2)
[2023-04-20 08:52] LABS: URINE APPEARANCE CLEAR; URINE BILIRUBIN NEGATIVE (NEGATIVE); URINE COLOR YELLOW; URINE GLUCOSE (UA) NEGATIVE (NEGATIVE)
[2023-04-20 08:53] LABS: PH,URINE 7.5 (5.0-8.0); URINE KETONE NEGATIVE (NEGATIVE); URINE LEUK ESTERASE NEGATIVE (NEGATIVE); URINE NITRITE NEGATIVE (NEGATIVE); URINE PROTEIN NEGATIVE (NEGATIVE); URINE UROBILINOGEN 0.2 mg/dL (0.2-1.0)
[2023-04-20] MEDS: HYDROCHLOROTHIAZIDE 25 MG TABLET (FP) PO SCH (10:06)
[2023-04-20] MEDS: metoPROLOL SUCCINATE 25 MG TAB.SR.24H (FP) PO SCH (10:06)
[2023-04-20] MEDS: amLODIPine BESYLATE 5 MG TABLET (FP) PO SCH (10:06)
[2023-04-20] MEDS: BACLOFEN 10 MG TABLET (FP) PO SCH (10:06)
[2023-04-20] MEDS: ATORVASTATIN CA 40 MG TABLET (FP) PO SCH (21:13)
[2023-04-20] MEDS: QUEtiapine FUMARATE 100 MG TABLET (FP) PO SCH (21:14)
[2023-04-20] MEDS: traMADol HCL 50 MG TABLET PO PRN (21:14)
[2023-04-20] MEDS ORDERED: ZOLPIDEM TARTRATE 5 MG TABLET PO PRN (22:00)
[2023-04-21] MEDS: HYDROCHLOROTHIAZIDE 25 MG TABLET (FP) PO SCH (10:09)
[2023-04-21] MEDS: metoPROLOL SUCCINATE 25 MG TAB.SR.24H (FP) PO SCH (10:09)
[2023-04-21] MEDS: BACLOFEN 10 MG TABLET (FP) PO SCH (10:09)
[2023-04-21] MEDS: amLODIPine BESYLATE 5 MG TABLET (FP) PO SCH (10:09)
[2023-04-21] MEDS: ASPIRIN 81 MG CHEWABLE TABLETS PO SCH (13:07)
[2023-04-21] MEDS: traMADol HCL 50 MG TABLET PO PRN (20:03)
[2023-04-21 20:23] VITALS: RESP 16
[2023-04-21] MEDS: ATORVASTATIN CA 40 MG TABLET (FP) PO SCH (21:17)
[2023-04-21] MEDS: QUEtiapine FUMARATE 100 MG TABLET (FP) PO SCH (21:18)
[2023-04-22] MEDS: ASPIRIN 81 MG CHEWABLE TABLETS PO SCH (09:31)
[2023-04-22] MEDS: BACLOFEN 10 MG TABLET (FP) PO SCH (09:31)
[2023-04-22] MEDS: metoPROLOL SUCCINATE 25 MG TAB.SR.24H (FP) PO SCH (09:31)
[2023-04-22] MEDS: amLODIPine BESYLATE 5 MG TABLET (FP) PO SCH (09:31)
[2023-04-22] MEDS: HYDROCHLOROTHIAZIDE 25 MG TABLET (FP) PO SCH (09:31)
[2023-04-22 10:27] VITALS: BP 116/87; PULSE 81; TEMP 98
== END 2023-04-22 10:55 | disposition home health service (06) ==
LOC: JER 13:25 → JERBED 19:45 → J4S 04-20 01:01
PROVIDERS: ADMIT Internal Medicine; ATTEND Family Medicine
PROC: 3E033NZ Introduction of Analgesics, Hypnotics, Sedatives into Peripheral Vein, Percutaneous Approach (ICD-10-PCS; principal; 2023-04-19)
PROC: 3E033GC Introduction of Other Therapeutic Substance into Peripheral Vein, Percutaneous Approach (ICD-10-PCS; 2023-04-19)
DX: R07.89 Other chest pain (principal); R55 Syncope and collapse; R10.9 Unspecified abdominal pain; I69.354 Hemiplegia and hemiparesis following cerebral infarction affecting left non-dominant side; I10 Essential (primary) hypertension; E78.5 Hyperlipidemia, unspecified; K21.9 Gastro-esophageal reflux disease without esophagitis; M54.42 Lumbago with sciatica, left side; G89.29 Other chronic pain
CPT/HCPCS: 36415; 70450-TC; 71046-TC-FY; 72125-TC; 80053; 80061; 81003; 83735; 84443; 84484; 85025; 87635; 93005; 93010; 93306-TC; 95816; 96374; 96375; 97116-GP; 97162-GP; 99285-25; G0378; J0475

== ENCOUNTER 2023-08-23 16:52 | Day surgery (SDC) | payer OTHER ==
[2023-08-23] MEDS ORDERED: ACETAMINOPHEN 1000 MG/100 ML BAG IVPB ONE (18:01)
[2023-08-23 18:40] LABS: BASO % 1.1 % (0-2.0); EOS % 10.8 % (0-4.5); LYMPH % 16.9 % (8-40); MCH 30.1 pg (25.7-33.7); MCHC 35.1 g/dl (32.0-35.9); MEAN CELL VOLUME 85.6 fl (80-96); MEAN PLT VOLUME 9.7 fl (7.5-11.1); MONO % 6.2 % (3.8-10.2); PLATELET COUNT 149 10^3/uL (134-434); RBC 4.67 M/mm3 (4.00-5.60); RDW 13.4 % (11.9-15.9); WHITE BLOOD COUNT 6.4 K/mm3 (4.0-10.0)
[2023-08-23] MEDS ORDERED: ACETAMINOPHEN INJECTION 100 ML IVPB ONE ×2 (18:45→22:37)
[2023-08-23 18:58] LABS: ALBUMIN 3.8 g/dl (3.4-5.0); BLOOD UREA NITROGEN 14.4 mg/dL (7-18)
[2023-08-23 19:01] LABS: CREATININE 1.2 mg/dL (0.55-1.3)
[2023-08-23 19:02] LABS: BILIRUBIN,TOTAL 0.3 mg/dL (0.2-1); TOT PROT 7.4 g/dl (6.4-8.2)
[2023-08-23 19:12] LABS: URINE APPEARANCE CLEAR; URINE BILIRUBIN NEGATIVE (NEGATIVE); URINE COLOR YELLOW; URINE GLUCOSE (UA) NEGATIVE (NEGATIVE); URINE KETONE NEGATIVE (NEGATIVE); URINE LEUK ESTERASE NEGATIVE (NEGATIVE); URINE NITRITE NEGATIVE (NEGATIVE); URINE PROTEIN NEGATIVE (NEGATIVE); URINE UROBILINOGEN 0.2 mg/dL (0.2-1.0)
[2023-08-23 20:08] LABS: CALCIUM 8.3 mg/dL (8.5-10.1)
[2023-08-23] MEDS ORDERED: FAMOTIDINE 20 MG/50 ML IVPB 20 MG/50 ML MG IVPB ONE ×2 (23:19→23:23)
[2023-08-23] MEDS ORDERED: SODIUM CHLORIDE 0.9% 500 ML INFUS.BAG IV ONE (23:19)
[2023-08-23] MEDS ORDERED: MAG HYDROX/AL HYDROX/SIMETH -MYLANTA- ORAL SUSPENSION PO ONE (23:19)
[2023-08-23] MEDS ORDERED: MAG HYDROX/AL HYDROX/SIMETH 30 ML UNIT-DOSE CUP ONE (23:22)
[2023-08-23] MEDS ORDERED: ASPIRIN 81 MG CHEWABLE TABLETS PO ONE (23:56)
[2023-08-24] MEDS ORDERED: ASPIRIN 81 MG CHEWABLE TABLETS ONE (00:01)
[2023-08-24] MEDS ORDERED: ZOLPIDEM TARTRATE 5 MG TABLET PO PRN ×2 (04:14→19:42)
[2023-08-24] MEDS ORDERED: oxyCODONE HCL 5 MG TABLET PO PRN ×2 (04:20→19:42)
[2023-08-24] MEDS ORDERED: DOCUSATE SODIUM 100 MG CAPSULE (FP) PO PRN ×2 (04:20→19:42)
[2023-08-24] MEDS ORDERED: ACETAMINOPHEN 325 MG TABLET (FP) PO PRN ×2 (04:21→19:42)
[2023-08-24 08:13] LABS: BASO % 1.4 % (0-2.0); EOS % 12.8 % (0-4.5); HEMATOCRIT 42.6 % (35.4-49); HEMOGLOBIN 14.3 GM/dL (11.7-16.9); LYMPH % 21.2 % (8-40); MCH 29.3 pg (25.7-33.7); MCHC 33.5 g/dl (32.0-35.9); MEAN CELL VOLUME 87.3 fl (80-96); MEAN PLT VOLUME 10.2 fl (7.5-11.1); NEUT % 56.6 % (42.8-82.8); PLATELET COUNT 150 10^3/uL (134-434); RBC 4.88 M/mm3 (4.00-5.60); RDW 13.3 % (11.9-15.9); WHITE BLOOD COUNT 5.6 K/mm3 (4.0-10.0)
[2023-08-24 08:27] LABS: POTASSIUM 4.1 mmol/L (3.5-5.1)
[2023-08-24 08:39] LABS: CALCIUM 8.4 mg/dL (8.5-10.1)
[2023-08-24 08:40] LABS: BLOOD UREA NITROGEN 11.2 mg/dL (7-18)
[2023-08-24] MEDS ORDERED: ASPIRIN 81 MG CHEWABLE TABLETS PO SCH (10:00)
[2023-08-24] MEDS ORDERED: amLODIPine BESYLATE 5 MG TABLET (FP) PO SCH (10:00)
[2023-08-24] MEDS ORDERED: ESCITALOPRAM OXALATE 20 MG TABLET PO SCH (10:00)
[2023-08-24] MEDS ORDERED: HYDROCHLOROTHIAZIDE 25 MG TABLET (FP) PO SCH (10:00)
[2023-08-24] MEDS ORDERED: metoPROLOL SUCCINATE 25 MG TAB.SR.24H (FP) PO SCH (10:00)
[2023-08-24] MEDS ORDERED: QUEtiapine FUMARATE 100 MG TABLET (FP) PO SCH ×2 (22:00)
[2023-08-24] MEDS ORDERED: ATORVASTATIN CA 40 MG TABLET (FP) PO SCH ×2 (22:00)
[2023-08-24 22:58] VITALS: BMI 27.9
[2023-08-25] MEDS ORDERED: BUPIVACAINE HCL/PF 0.5% (5MG/ML) 10 ML VIAL ONE (09:14)
[2023-08-25] MEDS ORDERED: MIDAZOLAM HCL 2 MG/2 ML SINGLE DOSE VIAL ONE (09:45)
[2023-08-25] MEDS ORDERED: PROPOFOL 40 ML ONE (09:45)
[2023-08-25] MEDS ORDERED: HYDROCHLOROTHIAZIDE 25 MG TABLET (FP) PO SCH (10:00)
[2023-08-25] MEDS ORDERED: ESCITALOPRAM OXALATE 20 MG TABLET PO SCH (10:00)
[2023-08-25] MEDS ORDERED: ASPIRIN 81 MG CHEWABLE TABLETS PO SCH (10:00)
[2023-08-25] MEDS ORDERED: metoPROLOL SUCCINATE 25 MG TAB.SR.24H (FP) PO SCH (10:00)
[2023-08-25] MEDS ORDERED: amLODIPine BESYLATE 5 MG TABLET (FP) PO SCH (10:00)
[2023-08-25] MEDS ORDERED: ROCURONIUM BROMIDE 50 MG/5 ML SYRINGE ONE (10:04)
[2023-08-25] MEDS ORDERED: ceFAZolin SODIUM 1 GM VIAL IVPB ONE (10:15)
[2023-08-25] MEDS ORDERED: BUPIVACAINE HCL/PF 0.5% (5 MG/ML) 30 ML VIAL IJ ONE ×2 (10:19)
[2023-08-25] MEDS ORDERED: NEOSTIGMINE METHYLSULFATE 0.5 MG/1 ML - 10 ML MDV ONE (10:42)
[2023-08-25] MEDS ORDERED: ACETAMINOPHEN 1000 MG/100 ML BAG IVPB ONE ×2 (11:12→11:32)
[2023-08-25] MEDS ORDERED: KETOROLAC TROMETHAMINE 15 MG/ML VIAL IVPUSH PRN (11:14)
[2023-08-25] MEDS ORDERED: oxyCODONE HCL 5 MG TABLET PO PRN ×2 (11:14→11:17)
[2023-08-25] MEDS ORDERED: LACTATED RINGERS SOLUTION 1,000 ML IV SCH (11:15)
[2023-08-25] MEDS ORDERED: FENTANYL CITRATE/PF 50 MCG/ML VIAL ONE (11:15)
[2023-08-25] MEDS ORDERED: ACETAMINOPHEN INJECTION 100 ML IVPB ONE (11:30)
[2023-08-25] MEDS ORDERED: ZOLPIDEM TARTRATE 5 MG TABLET PO PRN (11:33)
[2023-08-25] MEDS ORDERED: DOCUSATE SODIUM 100 MG CAPSULE (FP) PO PRN (11:33)
[2023-08-25] MEDS: LACTATED RINGERS SOLUTION 1,000 ML IV SCH (11:34)
[2023-08-25 12:31] VITALS: RESP 16
[2023-08-25] MEDS: oxyCODONE HCL 5 MG TABLET PO PRN (18:28)
[2023-08-25] MEDS: ACETAMINOPHEN 500 MG TABLET (FP) PO SCH (18:34)
[2023-08-25] MEDS ORDERED: ATORVASTATIN CA 40 MG TABLET (FP) PO SCH (22:00)
[2023-08-25] MEDS ORDERED: QUEtiapine FUMARATE 100 MG TABLET (FP) PO SCH (22:00)
[2023-08-26] MEDS: LACTATED RINGERS SOLUTION 1,000 ML IV SCH ×2 (01:25→12:03)
[2023-08-26] MEDS: ACETAMINOPHEN 500 MG TABLET (FP) PO SCH ×2 (02:10→09:49)
[2023-08-26] MEDS: oxyCODONE HCL 5 MG TABLET PO PRN (09:21)
[2023-08-26] MEDS ORDERED: ASPIRIN 81 MG CHEWABLE TABLETS PO SCH (10:00)
[2023-08-26] MEDS ORDERED: amLODIPine BESYLATE 5 MG TABLET (FP) PO SCH (10:00)
[2023-08-26] MEDS ORDERED: metoPROLOL SUCCINATE 25 MG TAB.SR.24H (FP) PO SCH (10:00)
[2023-08-26] MEDS ORDERED: HYDROCHLOROTHIAZIDE 25 MG TABLET (FP) PO SCH (10:00)
[2023-08-26] MEDS ORDERED: ESCITALOPRAM OXALATE 20 MG TABLET PO SCH (10:00)
[2023-08-26 11:21] LABS: HEMATOCRIT 36.8 % (35.4-49); HEMOGLOBIN 13.6 GM/dL (11.7-16.9); MCH 30.7 pg (25.7-33.7); MCHC 36.8 g/dl (32.0-35.9); MEAN CELL VOLUME 83.3 fl (80-96); MEAN PLT VOLUME 9.7 fl (7.5-11.1); PLATELET COUNT 153 10^3/uL (134-434); RBC 4.42 M/mm3 (4.00-5.60); RDW 13.4 % (11.9-15.9); WHITE BLOOD COUNT 7.8 K/mm3 (4.0-10.0)
[2023-08-26 12:11] LABS: BILIRUBIN,TOTAL 0.6 mg/dL (0.2-1); TOT PROT 6.8 g/dl (6.4-8.2)
[2023-08-26 12:25] LABS: ALBUMIN 3.5 g/dl (3.4-5.0); BLOOD UREA NITROGEN 16.5 mg/dL (7-18); CALCIUM 8.6 mg/dL (8.5-10.1)
[2023-08-26 12:31] LABS: CREATININE 0.9 mg/dL (0.55-1.3)
[2023-08-26 14:15] VITALS: BP 102/80; PULSE 74; TEMP 98.3
== END 2023-08-26 14:55 | disposition home or self-care (01) ==
LOC: JER 16:52 → UNDOADMOB 23:59 → JERBED 23:59 → J5S 08-24 18:48 → JASUSAT 08-25 13:41 → J5S 08-25 13:53 → JASUSAT 08-26 14:55
PROVIDERS: ATTEND Family Medicine
PROC: 0FT44ZZ Resection of Gallbladder, Percutaneous Endoscopic Approach (ICD-10-PCS; principal; 2023-08-25 10:00)
DX: K81.9 Cholecystitis, unspecified (principal)
CPT/HCPCS: 36415; 71045-TC-FY; 76705-TC; 80048; 80053; 81003; 83690; 84484; 85025; 85027; 87086; 93005; 93010; 94760; 97116-GP; 97162-GP; 99285-25

== ENCOUNTER 2023-11-04 12:39 | Emergency (ER) | payer OTHER ==
[2023-11-04 12:48] VITALS: BP 138/67; PULSE 66; RESP 18; TEMP 98.9; BMI 23.9
[2023-11-04] MEDS ORDERED: DEXAMETHASONE SOD PHOSPHATE 10 MG/1 ML VIAL IM ONE (13:15)
[2023-11-04] MEDS ORDERED: LIDOCAINE 4% PATCH TP ONE ×2 (13:17→13:30)
[2023-11-04] MEDS ORDERED: DEXAMETHASONE SOD PHOSPHATE 10 MG/1 ML VIAL ONE (13:30)
[2023-11-04] MEDS ORDERED: LIDOCAINE PATCH REMOVAL MC ONE (22:00)
== END 2023-11-04 14:19 | disposition home or self-care (01) ==
LOC: JERFT 12:39
PROC: 3E023GC Introduction of Other Therapeutic Substance into Muscle, Percutaneous Approach (ICD-10-PCS; principal; 2023-11-04)
DX: M54.2 Cervicalgia (principal); M25.511 Pain in right shoulder; M54.15 Radiculopathy, thoracolumbar region
CPT/HCPCS: 96372; 99284-25; J1100

== ENCOUNTER 2023-11-11 09:07 | Emergency (ER) | payer OTHER ==
[2023-11-11 09:41] VITALS: BP 99/81; PULSE 78; RESP 19; TEMP 98.7; BMI 26.5
[2023-11-11] MEDS ORDERED: LIDOCAINE 5% TOPICAL PATCH TP ONE (10:59)
[2023-11-11] MEDS ORDERED: KETOROLAC TROMETHAMINE 30 MG/1 ML VIAL IVPUSH ONE (10:59)
[2023-11-11] MEDS ORDERED: LIDOCAINE 4% PATCH TP ONE (11:05)
[2023-11-11] MEDS ORDERED: KETOROLAC TROMETHAMINE 30 MG/1 ML VIAL ONE (11:05)
[2023-11-11 11:29] LABS: BASO % 0.3 % (0-2.0); EOS % 1.6 % (0-4.5); HEMATOCRIT 43.9 % (35.4-49); HEMOGLOBIN 14.8 GM/dL (11.7-16.9); LYMPH % 11.2 % (8-40); MCH 29.9 pg (25.7-33.7); MCHC 33.8 g/dl (32.0-35.9); MEAN CELL VOLUME 88.5 fl (80-96); MEAN PLT VOLUME 10.3 fl (7.5-11.1); MONO % 5.2 % (3.8-10.2); NEUT % 81.7 % (42.8-82.8); PLATELET COUNT 156 10^3/uL (134-434); RBC 4.96 M/mm3 (4.00-5.60); RDW 14.4 % (11.9-15.9); WHITE BLOOD COUNT 6.5 K/mm3 (4.0-10.0)
[2023-11-11 11:37] LABS: INR 0.91 (0.83-1.09); PROTHROMBIN TIME (PATIENT) 10.6 SEC (9.7-13.0)
[2023-11-11 11:40] LABS: ACTIVATED PTT 21.8 SECONDS (25.2-36.5)
[2023-11-11 11:50] LABS: POTASSIUM 3.4 mmol/L (3.5-5.1)
[2023-11-11 11:51] LABS: ALBUMIN 3.8 g/dl (3.4-5.0); BLOOD UREA NITROGEN 20.6 mg/dL (7-18); CALCIUM 9.2 mg/dL (8.5-10.1)
[2023-11-11 11:56] LABS: BILIRUBIN,TOTAL 0.6 mg/dL (0.2-1); TOT PROT 7.6 g/dl (6.4-8.2)
[2023-11-11] MEDS ORDERED: HYDROmorphone HCl 2 MG/ML VIAL IVPUSH ONE (13:49)
[2023-11-11] MEDS ORDERED: HYDROmorphone HCl 2 MG/ML VIAL ONE (14:12)
[2023-11-11] MEDS ORDERED: LIDOCAINE PATCH REMOVAL MC ONE (22:00)
== END 2023-11-11 16:26 | disposition home or self-care (01) ==
LOC: JER 09:07
PROC: 3E033NZ Introduction of Analgesics, Hypnotics, Sedatives into Peripheral Vein, Percutaneous Approach (ICD-10-PCS; principal; 2023-11-11)
PROC: 3E033GC Introduction of Other Therapeutic Substance into Peripheral Vein, Percutaneous Approach (ICD-10-PCS; 2023-11-11)
DX: R07.9 Chest pain, unspecified (principal); M79.10 Myalgia, unspecified site; Z20.822 Contact with and (suspected) exposure to COVID-19
CPT/HCPCS: 0241U-QW; 36415; 71045-TC-FY; 80053; 83690; 84484; 85025; 85610; 85730; 93005; 93010; 99285-25

== ENCOUNTER 2024-01-23 12:34 | Emergency (ER) | payer OTHER ==
[2024-01-23 12:54] VITALS: BMI 23.0
[2024-01-23 13:16] LABS: BASO % 0.4 % (0-2.0); EOS % 0.1 % (0-4.5); HEMATOCRIT 40.8 % (35.4-49); HEMOGLOBIN 13.8 GM/dL (11.7-16.9); LYMPH % 9.5 % (8-40); MCH 29.7 pg (25.7-33.7); MCHC 33.9 g/dl (32.0-35.9); MEAN CELL VOLUME 87.5 fl (80-96); MEAN PLT VOLUME 9.2 fl (7.5-11.1); MONO % 7.5 % (3.8-10.2); NEUT % 82.5 % (42.8-82.8); PLATELET COUNT 218 10^3/uL (134-434); RBC 4.66 M/mm3 (4.00-5.60); RDW 14.2 % (11.9-15.9); WHITE BLOOD COUNT 8.5 K/mm3 (4.0-10.0)
[2024-01-23 13:23] LABS: INR 1.07 (0.83-1.09); PROTHROMBIN TIME (PATIENT) 12.4 SEC (9.7-13.0)
[2024-01-23] MEDS ORDERED: MECLIZINE HCL 25 MG TABLET (FP) ONE (13:23)
[2024-01-23] MEDS ORDERED: METOCLOPRAMIDE HCL INJECTION 10 MG/2 ML VIAL ONE ×2 (13:23→13:30)
[2024-01-23 13:26] LABS: ACTIVATED PTT 25.2 SECONDS (25.2-36.5)
[2024-01-23 13:31] LABS: POTASSIUM 4.4 mmol/L (3.5-5.1)
[2024-01-23 13:33] LABS: ALBUMIN 4.3 g/dl (3.4-5.0); BLOOD UREA NITROGEN 18.3 mg/dL (7-18); CALCIUM 9.5 mg/dL (8.5-10.1); MAGNESIUM 2.3 mg/dL (1.8-2.4)
[2024-01-23 13:38] LABS: BILIRUBIN,TOTAL 0.6 mg/dL (0.2-1); TOT PROT 7.8 g/dl (6.4-8.2)
[2024-01-23] MEDS: ACETAMINOPHEN 1000 MG/100 ML BAG IVPB ONE ×2 (13:39→15:32)
[2024-01-23] MEDS: MECLIZINE HCL 25 MG TABLET (FP) PO ONE (13:39)
[2024-01-23] MEDS: METOCLOPRAMIDE HCL INJECTION 10 MG/2 ML VIAL IVPB ONE (13:39)
[2024-01-23] MEDS ORDERED: ACETAMINOPHEN INJECTION 100 ML IVPB ONE (15:22)
[2024-01-23 15:51] LABS: URINE APPEARANCE CLEAR; URINE BILIRUBIN NEGATIVE (NEGATIVE); URINE COLOR YELLOW; URINE GLUCOSE (UA) NEGATIVE (NEGATIVE); URINE KETONE NEGATIVE (NEGATIVE); URINE LEUK ESTERASE NEGATIVE (NEGATIVE); URINE NITRITE NEGATIVE (NEGATIVE); URINE PROTEIN NEGATIVE (NEGATIVE); URINE UROBILINOGEN 0.2 mg/dL (0.2-1.0)
[2024-01-23 16:42] VITALS: BP 144/72; PULSE 79; RESP 20; TEMP 99.2
== END 2024-01-23 16:42 | disposition home or self-care (01) ==
LOC: JER 12:34
PROC: 3E033GC Introduction of Other Therapeutic Substance into Peripheral Vein, Percutaneous Approach (ICD-10-PCS; principal; 2024-01-23)
PROC: 3E033NZ Introduction of Analgesics, Hypnotics, Sedatives into Peripheral Vein, Percutaneous Approach (ICD-10-PCS; 2024-01-23)
DX: R51.9 Headache, unspecified (principal); H93.13 Tinnitus, bilateral; R42 Dizziness and giddiness; R11.0 Nausea; R07.9 Chest pain, unspecified; Z20.822 Contact with and (suspected) exposure to COVID-19
CPT/HCPCS: 0241U-QW; 36415; 70450-TC; 80053; 80307; 81003; 83735; 84484; 85025; 85610; 85730; 87086; 93005; 93010; 96374; 96375; 99285-25; J0131

== ENCOUNTER 2024-06-05 14:40 | Emergency (ER) | payer OTHER ==
[2024-06-05 14:53] VITALS: TEMP 98.4; BMI 22.5
[2024-06-05 15:46] LABS: EOS % 7.3 % (0-4.5); HEMATOCRIT 38.8 % (35.4-49); HEMOGLOBIN 13.4 GM/dL (11.7-16.9); LYMPH % 24.8 % (8-40); MCH 29.8 pg (25.7-33.7); MCHC 34.4 g/dl (32.0-35.9); MEAN CELL VOLUME 86.6 fl (80-96); MEAN PLT VOLUME 9.2 fl (7.5-11.1); MONO % 7.9 % (3.8-10.2); PLATELET COUNT 178 10^3/uL (134-434); RBC 4.49 M/mm3 (4.00-5.60); WHITE BLOOD COUNT 5.7 K/mm3 (4.0-10.0)
[2024-06-05 16:05] LABS: POTASSIUM 3.8 mmol/L (3.5-5.1)
[2024-06-05 16:11] LABS: CREATININE 1.1 mg/dL (0.55-1.3)
[2024-06-05 16:13] LABS: BILIRUBIN,TOTAL 0.5 mg/dL (0.2-1); TOT PROT 7.2 g/dl (6.4-8.2)
[2024-06-05] MEDS ORDERED: KETOROLAC TROMETHAMINE 15 MG/ML VIAL ONE (17:31)
[2024-06-05] MEDS ORDERED: ACETAMINOPHEN INJECTION 100 ML IVPB ONE (17:31)
[2024-06-05] MEDS: KETOROLAC TROMETHAMINE 15 MG/ML VIAL IVPUSH ONE (17:47)
[2024-06-05] MEDS: ACETAMINOPHEN 1000 MG/100 ML BAG IVPB ONE (17:48)
[2024-06-05 17:56] LABS: PH,URINE 6.5 (5.0-8.0); URINE APPEARANCE CLEAR; URINE BILIRUBIN NEGATIVE (NEGATIVE); URINE COLOR YELLOW; URINE GLUCOSE (UA) NEGATIVE (NEGATIVE); URINE KETONE NEGATIVE (NEGATIVE); URINE LEUK ESTERASE NEGATIVE (NEGATIVE); URINE NITRITE NEGATIVE (NEGATIVE); URINE PROTEIN NEGATIVE (NEGATIVE); URINE UROBILINOGEN 0.2 mg/dL (0.2-1.0)
[2024-06-05 20:29] LABS: ALBUMIN 4.1 g/dl (3.4-5.0); BLOOD UREA NITROGEN 19.1 mg/dL (7-18); CALCIUM 8.9 mg/dL (8.5-10.1)
[2024-06-05 20:52] VITALS: BP 136/81; PULSE 61; RESP 12
== END 2024-06-05 22:02 | disposition home or self-care (01) ==
LOC: JER 14:40
PROC: 3E033NZ Introduction of Analgesics, Hypnotics, Sedatives into Peripheral Vein, Percutaneous Approach (ICD-10-PCS; principal; 2024-06-05)
PROC: 3E0333Z Introduction of Anti-inflammatory into Peripheral Vein, Percutaneous Approach (ICD-10-PCS; 2024-06-05)
DX: R07.89 Other chest pain (principal); G89.29 Other chronic pain; R10.11 Right upper quadrant pain; R06.02 Shortness of breath
CPT/HCPCS: 36415; 71046-TC-FY; 80053; 81003; 83690; 84484; 85025; 93005; 93010; 96374; 96375; 99285-25; J0131

== ENCOUNTER 2024-08-29 12:51 | Emergency (ER) | payer OTHER ==
[2024-08-29 13:03] VITALS: RESP 18; TEMP 98.2; BMI 22.5
[2024-08-29] MEDS ORDERED: BACLOFEN 10 MG TABLET (FP) ONE (14:07)
[2024-08-29] MEDS ORDERED: ACETAMINOPHEN INJECTION 100 ML ONE (14:07)
[2024-08-29] MEDS: BACLOFEN 10 MG TABLET (FP) PO ONE (14:14)
[2024-08-29] MEDS: ACETAMINOPHEN 1000 MG/100 ML BAG IVPB ONE (14:14)
[2024-08-29 14:24] LABS: HEMATOCRIT 38.4 % (35.4-49); HEMOGLOBIN 12.9 GM/dL (11.7-16.9); MCH 29.1 pg (25.7-33.7); MCHC 33.5 g/dl (32.0-35.9); MEAN PLT VOLUME 9.4 fl (7.5-11.1); PLATELET COUNT 190 10^3/uL (134-434); RBC 4.42 M/mm3 (4.00-5.60); RDW 13.4 % (11.9-15.9); WHITE BLOOD COUNT 4.2 K/mm3 (4.0-10.0)
[2024-08-29 14:40] LABS: POTASSIUM 3.7 mmol/L (3.5-5.1)
[2024-08-29 14:45] LABS: ALBUMIN 3.8 g/dl (3.4-5.0); BLOOD UREA NITROGEN 11.1 mg/dL (7-18); CALCIUM 9.1 mg/dL (8.5-10.1)
[2024-08-29 14:47] LABS: CREATININE 0.8 mg/dL (0.55-1.3)
[2024-08-29 14:50] LABS: BILIRUBIN,TOTAL 0.8 mg/dL (0.2-1); TOT PROT 6.9 g/dl (6.4-8.2)
[2024-08-29 15:35] LABS: PH,URINE 6.5 (5.0-8.0); URINE APPEARANCE CLEAR; URINE BILIRUBIN NEGATIVE (NEGATIVE); URINE COLOR YELLOW; URINE GLUCOSE (UA) NEGATIVE (NEGATIVE); URINE KETONE NEGATIVE (NEGATIVE); URINE LEUK ESTERASE NEGATIVE (NEGATIVE); URINE NITRITE NEGATIVE (NEGATIVE); URINE PROTEIN NEGATIVE (NEGATIVE); URINE UROBILINOGEN 0.2 mg/dL (0.2-1.0)
[2024-08-29 16:54] VITALS: BP 159/89; PULSE 67
== END 2024-08-29 17:08 | disposition home or self-care (01) ==
LOC: JER 12:51
PROC: 3E033NZ Introduction of Analgesics, Hypnotics, Sedatives into Peripheral Vein, Percutaneous Approach (ICD-10-PCS; principal; 2024-08-29)
DX: R51.9 Headache, unspecified (principal); M25.511 Pain in right shoulder; G89.29 Other chronic pain; R07.89 Other chest pain; W01.198A Fall on same level from slipping, tripping and stumbling with subsequent striking against other object, initial encounter
CPT/HCPCS: 36415; 70450-TC; 71250-TC; 72170-TC-FY; 73030-TC-RT-FY; 73502-TC-RT-FY; 73560-TC-LT-FY; 73560-TC-RT-FY; 80053; 81003; 82962; 85027; 87086; 93005; 93010; 99285-25; J0131; J0475

== ENCOUNTER 2024-12-03 10:08 | Emergency (ER) | payer OTHER ==
[2024-12-03 10:20] VITALS: BP 112/76; PULSE 71; RESP 20; TEMP 98.3; BMI 22.5
[2024-12-03] MEDS ORDERED: oxyCODONE HCL 5 MG TABLET ONE (11:37)
[2024-12-03] MEDS: oxyCODONE HCL 5 MG TABLET PO ONE (11:45)
[2024-12-03] MEDS ORDERED: KETOROLAC TROMETHAMINE 30 MG/1 ML VIAL ONE (12:40)
[2024-12-03] MEDS: KETOROLAC TROMETHAMINE 30 MG/1 ML VIAL IM ONE (13:25)
== END 2024-12-03 15:39 | disposition home or self-care (01) ==
LOC: JER 10:08
PROC: 3E0233Z Introduction of Anti-inflammatory into Muscle, Percutaneous Approach (ICD-10-PCS; principal; 2024-12-03)
DX: M25.511 Pain in right shoulder (principal); G89.29 Other chronic pain
CPT/HCPCS: 93005; 93010; 96372; 99284-25

== ENCOUNTER 2025-03-23 06:38 | Day surgery (SDC) | payer OTHER ==
[2025-03-22 16:00] VITALS: BMI 22.4
[2025-03-23 10:30] VITALS: RESP 16
[2025-03-23] MEDS: IOHEXOL 180 MG/1 ML ML IJ ONE (11:16)
[2025-03-23] MEDS: DEXAMETHASONE SOD PHOSPHATE 10 MG/1 ML VIAL IM ONE (11:18)
[2025-03-23] MEDS: LIDOCAINE HCL 1% PRESERVATIVE FREE - 30ML VIAL IJ ONE (11:18)
[2025-03-23 11:43] VITALS: BP 154/85; PULSE 76; TEMP 97.2
[2025-03-23] MEDS ORDERED: ACETAMINOPHEN 500 MG TABLET (FP) PO PRN (14:42)
== END 2025-03-23 11:55 | disposition home or self-care (01) ==
LOC: JASU-SURG 06:38
PROVIDERS: ATTEND Pain Medicine Pain Medicine
PROC: 3E0R3BZ Introduction of Anesthetic Agent into Spinal Canal, Percutaneous Approach (ICD-10-PCS; 2025-03-23)
PROC: 3E0R33Z Introduction of Anti-inflammatory into Spinal Canal, Percutaneous Approach (ICD-10-PCS; principal; 2025-03-23 11:00)
DX: M54.12 Radiculopathy, cervical region (principal)
CPT/HCPCS: J1100

== ENCOUNTER 2025-09-08 18:23 | Emergency (ER) | payer OTHER ==
[2025-09-08 18:45] VITALS: TEMP 98.9; BMI 22.2
[2025-09-08] MEDS ORDERED: KETOROLAC TROMETHAMINE 15 MG/ML VIAL IVPUSH ONE (19:40)
[2025-09-08] MEDS ORDERED: METHOCARBAMOL 500 MG TABLET PO ONE (19:40)
[2025-09-08 20:00] VITALS: BP 154/90; PULSE 77; RESP 18
== END 2025-09-08 20:16 | disposition left against medical advice (07) ==
LOC: JER 18:23
DX: R30.0 Dysuria (principal); R10.11 Right upper quadrant pain; R11.2 Nausea with vomiting, unspecified; M25.511 Pain in right shoulder; G89.29 Other chronic pain
CPT/HCPCS: 99284-25